=== PATIENT | male | born 1960 | race American Indian/Alaskan Native ===

== ENCOUNTER 2016-08-17 06:47 | Inpatient (IN) | payer BC ==
--- NOTE | 2016-08-17 07:49 | ED PDOC ---
Lower Extremity Pain/Injury Time Seen by Provider: 08/17/16 07:32 Chief Complaint (Nursing): Lower Extremity Problem/Injury Chief Complaint (Provider): right knee pain History Per: Patient History/Exam Limitations: no limitations Additional Complaint(s): Michael Brooke is a 56 year old male, with a previous medical history of hypertension, who presents to the ED with complaints of right knee pain associated with swelling and drainage status post knee replacement. He denies any fever or chills. Patient reports symptoms began after physical therapy session which prompted ED visit. PMD: Jeremías Bashir MD Past Medical History Reviewed: Historical Data, Nursing Documentation, Vital Signs Vital Signs: Last Vital Signs Temp 98.3 F 08/17/16 06:56 Pulse 74 08/17/16 06:56 Resp 16 08/17/16 06:56 BP 148/76 08/17/16 06:56 Pulse Ox 99 08/17/16 06:56 - Medical History PMH: HTN - Surgical History Other surgeries: right knee replacement - Family History Family History: States: Unknown Family Hx - Home Medications Home Medications: Ambulatory Orders Medication Instructions Recorded Linezolid [Zyvox] 600 mg PO Q12H 08/17/16 Montelukast [Singulair] 10 mg PO DAILY 08/17/16 Oxycodone HCl [Oxycontin] 30 mg PO Q12H 08/17/16 Valsartan [Diovan] 80 mg PO DAILY 08/17/16 oxyCODONE [oxyCODONE Immediate 30 mg PO Q8H PRN 08/17/16 Release Tab] - Allergies Allergies/Adverse Reactions: Allergies Allergy/AdvReac Type Severity Reaction Status Date / Time No Known Allergies Allergy Verified 08/17/16 06:56 Review of Systems ROS Statement: Except As Marked, All Systems Reviewed And Found Negative Constitutional: Negative for: Fever, Chills Musculoskeletal: Positive for: Leg Pain (right knee pain with swelling and drainage ) Physical Exam - Reviewed Nursing Documentation Reviewed: Yes Vital Signs Reviewed: Yes - Physical Exam Appears: Positive for: Well, Non-toxic, No Acute Distress Extremity: Positive for: Capillary Refill (< 2 seconds ), Swelling (right knee ) , Other (two wounds along surgical scar with scant yellow drainage. no active bleeding. ). Negative for: Deformity Neurologic/Psych: Positive for: Alert, Oriented - Laboratory Results Result Diagrams: 08/17/16 08:35 08/17/16 08:35 - ECG O2 Sat by Pulse Oximetry: 99 (RA) Pulse Ox Interpretation: Normal Medical Decision Making Medical Decision Making: Initial Impression: Knee pain Initial Plan: * x-ray right knee * labs * VBG shock panel * toradol 30 mg IV * blood culture * reevaluation Scribe Attestation: Documented by Nancy Saba, acting as a scribe for Gonzalez Pandey MD. Provider Scribe Attestation: All medical record entries made by the Scribe were at my direction and personally dictated by me. I have reviewed the chart and agree that the record accurately reflects my personal performance of the history, physical exam, medical decision making, and the department course for this patient. I have also personally directed, reviewed, and agree with the discharge instructions and disposition. Disposition - Clinical Impression Clinical Impression: Infection of knee - Patient ED Disposition Is Patient to be Admitted: Yes - Disposition Disposition Time: 10:20 Condition: GOOD - Pt Status Changed To: Hospital Disposition Of: Inpatient - Admit Certification Admit to Inpatient:: After my assessment, the patient will require hospitalization for at least two midnights. This is because of the severity of symptoms shown, intensity of services needed, and/or the medical risk in this patient being treated as an outpatient. - POA Present On Arrival: None
[2016-08-17] MEDS ORDERED: Vancomycin 1 g Inj ONE ×2 (08:31→15:52)
[2016-08-17 08:43] LABS: BASO # 0.1 K/uL (0.0-0.2); EOS # 0.2 K/uL (0.0-0.7); EOS % 4.1 % (0.0-4.0); HEMATOCRIT 36.8 % (35.0-51.0); LYMPH # 1.4 K/uL (1.0-4.3); LYMPH % 24.4 % (20.0-40.0); MEAN CELL VOLUME 96.2 fl (80.0-94.0); MEAN CORPUSCULAR HGB CONC 32.3 g/dL (33.0-37.0); MEAN PLATELET VOLUME 7.6 fl (7.2-11.7); MONO # 0.3 K/uL (0.0-0.8); MONO % 5.7 % (0.0-10.0); NEUT # 3.7 K/uL (1.8-7.0); NEUT % 64.8 % (50.0-75.0); RED CELL DISTRIBUTION WIDTH 14.9 % (11.5-14.5); WHITE BLOOD COUNT 5.7 K/uL (4.8-10.8)
[2016-08-17 08:45] LABS: VENOUS BLOOD GAS PCO2 50 mmHg (40-60)
[2016-08-17 08:52] LABS: ALB/GLOB RATIO 1.1 (1.0-2.1); ALKALINE PHOSPHATASE 72 U/L (38-126); ALT/SGPT 26 U/L (21-72); AST/SGOT 32 U/L (17-59); BILIRUBIN,TOTAL 0.3 mg/dl (0.2-1.3); BLOOD UREA NITROGEN 12 mg/dl (9-20); CARBON DIOXIDE 28 mmol/L (22-30); CHLORIDE 105 mmol/L (98-107); GFR AFRICAN-AMERICAN > 60; GLUCOSE,RANDOM 99 mg/dL (75-110); POTASSIUM 4.1 MMOL/L (3.6-5.0); SODIUM 141 mmol/l (132-148); TOTAL PROTEIN 7.7 G/DL (6.3-8.2)
--- NOTE | 2016-08-17 10:54 | CP.PCM.HP ---
History of Present Illness - History of Present Illness History of Present Illness: CC: knee pain HPI: 56 year old male with PMH HTN s/p bilateral knee replacements nov 2011, s/ p L knee surgery one month ago. Patient was in rehab about 2-3 weeks ago when he states he was doing an exercise and his knee "bust open" and fluid was expelled from the knee. Patient is unable to describe this fluid. Patient to go for surgery with Dr. Bashir again today. EKG NSR rate 57. Labs were reviewed. Currently no active chest pain or shortness of breath at rest or on exertion. METS > 4. Patient is low risk for moderate risk surgery and is medically stable for surgery this morning. Denies recent illness, fever, chills, chest pain, dyspnea, abdominal pain, dysuria, hematuria, hematochezia, melena, n/v/c/d. ROS: per HPI, 12 systems reviewed and negative PMSH: HTN s/p bilateral knee replacements nov 2011, s/p L knee surgery one month ago FH: HTN SH: 1 ppd 10 days. Meds: as below Allergies: NKDA Vitals: reviewed and currently stable Exam: GEN: WDWN, alert, cooperative HEENT: NCAT, PERRL, EOMI NECK: supple, no JVD, no lymphadenopathy CARDIAC: +S1S2 RRR LUNG: CTAB No WRR ABD: SOFT NT ND BSX4 NO MASSES NO HSM EXT: +pedal pulses, warm and well perfused NEURO: AAOx3 SKIN warm, dry PSYCH normal mood, normal affect Labs: reviewed and as above 08/17/16 08:35 08/17/16 08:35 PT 11.0 Seconds (9.8-13.1) 08/17/16 09:00 INR 1.0 (0.9-1.2) 08/17/16 09:00 Rads: reviewed and as above knee xr and lower extremitt ct pending Assessment and Plan: 56 year old male with PMH HTN s/p bilateral knee replacements nov 2011, s/p L knee surgery one month ago. Patient was in rehab about 2-3 weeks ago when he states he was doing an exercise and his knee "bust open" and fluid was expelled from the knee. Patient is unable to describe this fluid. Patient to go for surgery with Dr. Bashir again today. EKG NSR rate 57. Labs were reviewed. Currently no active chest pain or shortness of breath at rest or on exertion. METS > 4. Patient is low risk for moderate risk surgery and is medically stable for surgery this morning. I/D of L knee s/p arthroplasty Admit to Medsurg Continue antibiotics, Vancomycin for now Dr. Billings Consulted for infectious disease and abx regimen VTE per ortho recommendation PT eval and treat Follow up cultures Hypertension stable cont diovan Present on Admission - Present on Admission Any Indicators Present on Admission: No Past Patient History - Past Social History Smoking Status: Heavy Smoker > 10 Cigarettes Daily - CARDIAC Hx Hypertension: Yes - PSYCHIATRIC Hx Substance Use: No - SURGICAL HISTORY Hx Orthopedic Surgery: Yes (bilateral total knee replacement) Other/Comment: right eye glaucoma surgery - ANESTHESIA Hx Anesthesia: Yes Hx Anesthesia Reactions: No Meds Allergies/Adverse Reactions: Allergies Allergy/AdvReac Type Severity Reaction Status Date / Time No Known Allergies Allergy Verified 08/17/16 06:56 Results - Vital Signs Recent Vital Signs: Last Vital Signs Temp 98.5 F 08/17/16 10:21 Pulse 75 08/17/16 10:21 Resp 18 08/17/16 10:21 BP 133/76 08/17/16 10:21 Pulse Ox 100 08/17/16 10:21 - Labs Result Diagrams: 08/17/16 08:35 08/17/16 08:35 Labs: Laboratory Results - last 24 hr 08/17/16 08/17/16 08/17/16 08:35 08:35 08:40 WBC 5.7 RBC 3.83 L Hgb 11.9 L Hct 36.8 MCV 96.2 H MCH 31.0 MCHC 32.3 L RDW 14.9 H Plt Count 342 MPV 7.6 Neut % (Auto) 64.8 Lymph % (Auto) 24.4 [place] % (Auto) 5.7 Eos % (Auto) 4.1 H Baso % (Auto) 1.0 Neut # 3.7 Lymph # 1.4 [place] # 0.3 Eos # 0.2 Baso # 0.1 PT INR pO2 21 L VBG pH 7.40 VBG pCO2 50 VBG HCO3 27.1 VBG Total CO2 32.5 H VBG O2 Sat (Calc) 62.2 VBG Base Excess 5.0 H VBG Potassium 4.0 Glucose 103 Lactate 1.0 FiO2 21.0 Sodium 141 139.0 Potassium 4.1 Chloride 105 106.0 Carbon Dioxide 28 Anion Gap 13 BUN 12 Creatinine 0.9 Est GFR ( Amer) > 60 Est GFR (Non-Af Amer) > 60 Random Glucose 99 Calcium 9.0 Total Bilirubin 0.3 AST 32 ALT 26 Alkaline Phosphatase 72 Total Protein 7.7 Albumin 4.0 Globulin 3.7 Albumin/Globulin Ratio 1.1 Venous Blood Potassium 4.0 08/17/16 09:00 WBC RBC Hgb Hct MCV MCH MCHC RDW Plt Count MPV Neut % (Auto) Lymph % (Auto) [place] % (Auto) Eos % (Auto) Baso % (Auto) Neut # Lymph # [place] # Eos # Baso # PT 11.0 INR 1.0 pO2 VBG pH VBG pCO2 VBG HCO3 VBG Total CO2 VBG O2 Sat (Calc) VBG Base Excess VBG Potassium Glucose Lactate FiO2 Sodium Potassium Chloride Carbon Dioxide Anion Gap BUN Creatinine Est GFR ( Amer) Est GFR (Non-Af Amer) Random Glucose Calcium Total Bilirubin AST ALT Alkaline Phosphatase Total Protein Albumin Globulin Albumin/Globulin Ratio Venous Blood Potassium
--- NOTE | 2016-08-17 13:40 | RAD ---
PROCEDURE: Right knee dated 08/17/2016 AP and cross-table lateral views right knee performed. HISTORY: Status post knee replacement. COMPARISON: No prior FINDINGS: Total knee arthroplasty. Hardware appears intact without evidence of loosening or infection. Satisfactory alignment. No evidence of acute displaced fracture. There does appear to be moderate anterior soft tissue swelling. The possibility of cellulitis or septic arthritis cannot be excluded. Suspect joint effusion. Impression: Status post right total knee arthroplasty. Hardware appears intact without evidence loosening or infection. Satisfactory alignment. No fractures. Moderate soft tissue swelling of. Septic arthritis not excluded clinical correlation recommended.
[2016-08-17] MEDS ORDERED: Absorbable Gelatin Sponge Size 100 ONE (14:57)
[2016-08-17] MEDS ORDERED: Thrombin Topical 5,000 IU Spray Kit ONE (14:57)
[2016-08-17] MEDS ORDERED: Bacitracin Ointment 30 GM TUBE ONE (14:57)
[2016-08-17] MEDS ORDERED: Succinylcholine 200 mg/10 ml Inj IV ONE ×2 (15:04→15:05)
[2016-08-17] MEDS ORDERED: Midazolam 2 MG/2 ML VIAL ONE (15:04)
[2016-08-17] MEDS ORDERED: Propofol 10 mg/ml Inj (20 ML) ONE (15:04)
[2016-08-17] MEDS ORDERED: Lidocaine Hydrochloride 5 ML INJ ONE (15:06)
[2016-08-17] MEDS ORDERED: Sodium Chloride 0.9% 0 ML IV ONE (15:25)
[2016-08-17] MEDS ORDERED: Iohexol 300 100 ML IJ ONE (15:26)
[2016-08-17] MEDS ORDERED: Lactated Ringer's 1,000 ML IV ONE ×3 (15:38→19:30)
[2016-08-17] MEDS ORDERED: Gentamicin 80 mg/2mL Inj. ONE (15:52)
[2016-08-17 16:56] LABS: FLUID TYPE SYNOVIAL FLUID
--- NOTE | 2016-08-17 17:11 | CT ---
PROCEDURE: CT of the right knee without contrast HISTORY: s/p reimplant prosthesis COMPARISON: Comparison is made to the previous x-ray of the right knee dated 08/17/2016 TECHNIQUE: Axial and reformatted coronal and sagittal CT images of the right knee were obtained without IV contrast administration. 3D reconstructed images of the right knee were obtained for further assessment of the hardware and bony structure. CT dose, DLP: 477.32 FINDINGS: The patient is status post total right knee replacement/ arthroplasty. The hardware are seen at appropriate position. There is no CT evidence of acute fracture or dislocation at the right knee. The assessment of the osseous structures is suboptimal due streak artifact from the hardware. There is moderate size complex joint effusion more prominent at the suprapatellar region. Small high-density ossicles or high density material seen adjacent and anterior to the proximal right tibia of uncertain etiology. There are also similar high density ossicles or material at the suprapatellar joint effusion. IMPRESSION: Status post right knee arthroplasty. No evidence of acute fracture or dislocation. Moderate size complex right knee joint effusion. Few scattered round high density structures seen anterior to the proximal right tibia and anterior to the distal right femur some of which seen also in the joint effusion of uncertain etiology. Preliminary report was submitted by virtual Radiology.
[2016-08-17 18:14] LABS: FLUID TYPE SYNOVIAL FLUID
[2016-08-17 18:26] LABS: SYNOVIAL FLUID TOTAL COUNT 100 (0-0)
[2016-08-17] MEDS ORDERED: ePHEDrine 50 mg/ml Inj ONE (18:40)
[2016-08-17 18:55] LABS: SYNOVIAL FLUID TOTAL COUNT 100 (0-0)
--- NOTE | 2016-08-17 19:10 | CP.PCM.PN ---
Subjective - Date & Time of Evaluation Date of Evaluation: 08/17/16 Time of Evaluation: 19:09 - Subjective Subjective: ID NOTE PATIENT IN OR HAVE CONTINUED VANCOMYCIN PER AM ORDER ADDED MAXIPEME AWAIT CULTURES Objective - Vital Signs/Intake and Output Vital Signs (last 24 hours): Temp Pulse Resp BP Pulse Ox 97.8 F 69 18 143/83 99 08/17/16 11:35 08/17/16 11:35 08/17/16 11:35 08/17/16 11:35 08/17/16 12:40 Intake and Output: 08/17/16 08/18/16 18:59 06:59 Intake Total 1000 Balance 1000 - Medications Medications: Current Medications Vancomycin HCl 1 gm/ Sodium (Chloride) 250 mls @ 166.667 mls/hr IVPB Q12H [facility] Cefepime HCl 1 gm/ Sodium (Chloride) 100 mls @ 100 mls/hr IVPB Q12 [facility] Montelukast Sodium (Singulair) 10 mg PO DAILY [facility] Ondansetron HCl (Zofran Inj) 4 mg IVP Q6 PRN PRN Reason: Nausea/Vomiting Pneumococcal Polyvalent Vaccine (Pneumovax 23 Vaccine) 0.5 ml IM .ONCE ONE Stop: 08/18/16 09:01 Valsartan (Diovan) 80 mg PO DAILY [facility] - Labs Labs: 08/17/16 08:35 08/17/16 08:35 PT 11.0 Seconds (9.8-13.1) 08/17/16 09:00 INR 1.0 (0.9-1.2) 08/17/16 09:00
[2016-08-17] MEDS ORDERED: HYDROmorphone 0.5 mg/0.5 ml ISec IVP PRN (19:55)
[2016-08-17] MEDS ORDERED: Lidocaine 2% MPF (5 ml) Inj ONE (20:02)
--- NOTE | 2016-08-17 20:04 | PCM.SURG1 ---
Surgeon's Initial Post Op Note - Surgeon's Notes Surgeon: Mckay Daycare Manager: STACEY Andrews Type of Anesthesia: General Endo, Block Regional Anesthesia Administered By: DR Gray Pre-Operative Diagnosis: Septic TKR R Operative Findings: quad tendon rupture. R/O deep sepsis. compromise patella ligament. tricompartmental synovits. lateral patella contracture (retinaculum) Post-Operative Diagnosis: as above Operation Performed: Revision TKR ( 1component). Repair Quad tendon. Repair [ patella ligament with suture anchors. anterior and posterior synovectom;ateral patella release. posterior capsular release Specimen/Specimens Removed: synovium/bone cartilage Estimated Blood Loss: EBL {In ML}: 75 Blood Products Given: N/A Drains Used: Hemovac Post-Op Condition: Good Date of Surgery/Procedure: 08/17/16 Time of Surgery/Procedure: 16:45 (time in room 15:38)
[2016-08-17] MEDS: HYDROmorphone 0.5 mg/0.5 ml ISec IVP PRN ×6 (20:15→20:55)
[2016-08-17] MEDS: Cefepime 1 GM in Sodium Chloride 0.9% 100 ML IVPB SCH (22:46)
--- NOTE | 2016-08-18 00:04 | CARD ---
APPROVED REPORT EKG Measurement Heart [id number] <Conclusion> Sinus bradycardia Otherwise normal ECG
[2016-08-18] MEDS ORDERED: Benzocaine/Menthol (Cepacol) Lozenge PO PRN (04:57)
[2016-08-18 08:40] LABS: BASO % 0.4 % (0.0-2.0); EOS # 0.2 K/uL (0.0-0.7); EOS % 3.3 % (0.0-4.0); HEMATOCRIT 31.1 % (35.0-51.0); LYMPH # 0.9 K/uL (1.0-4.3); MEAN CELL VOLUME 96.3 fl (80.0-94.0); MEAN CORPUSCULAR HEMOGLOBIN 30.9 pg (27.0-31.0); MEAN CORPUSCULAR HGB CONC 32.1 g/dL (33.0-37.0); MEAN PLATELET VOLUME 7.5 fl (7.2-11.7); MONO # 0.3 K/uL (0.0-0.8); MONO % 3.8 % (0.0-10.0); NEUT # 5.4 K/uL (1.8-7.0); NEUT % 79.5 % (50.0-75.0); WHITE BLOOD COUNT 6.7 K/uL (4.8-10.8)
[2016-08-18 08:46] LABS: BLOOD UREA NITROGEN 10 mg/dl (9-20); CALCIUM 8.6 mg/dL (8.4-10.2); CARBON DIOXIDE 27 mmol/L (22-30); CHLORIDE 104 mmol/L (98-107); GFR AFRICAN-AMERICAN > 60; GLUCOSE,RANDOM 106 mg/dL (75-110); SODIUM 139 mmol/l (132-148)
[2016-08-18] MEDS ORDERED: Pneumococcal 23-Valent Vaccine IM ONE (09:00)
--- NOTE | 2016-08-18 09:30 | RAD ---
HISTORY: cough COMPARISON: No prior. FINDINGS: LUNGS: The lungs are well inflated and clear. PLEURA: No significant pleural effusion identified, no pneumothorax apparent. CARDIOVASCULAR: Normal. OSSEOUS STRUCTURES: No significant abnormalities. VISUALIZED UPPER ABDOMEN: Normal. OTHER FINDINGS: None. IMPRESSION: No acute findings.
[2016-08-18] MEDS: Cefepime 1 GM in Sodium Chloride 0.9% 100 ML IVPB SCH ×2 (09:50→20:37)
--- NOTE | 2016-08-18 10:06 | CP.PCM.CON ---
History of Present Illness - History of Present Illness History of Present Illness: THE PATIENT IS A 56 YEAR OLD MALE WHO UNDERWENT BILATERAL KNEE REPLACEMENTS IN 2012 AND HAD A RIGHT KNEE SURGERY ONE MONTH AGO AND AT REHAB THE SURGICAL SITE OPENED AND HE WAS ADMITTED YESTERDAY AND HAD A REVISION. HE ALSO HAS A HISTORY OF HYPERTENSION. CARDIOLOGY WAS ASKED TO SEE HIM. HE DENIES ANY KNOWN CARDIAC PROBLEMS AND DENIES CHEST PAIN OR SOB. Past Patient History - Past Social History Smoking Status: Heavy Smoker > 10 Cigarettes Daily - CARDIAC Hx Hypertension: Yes - PULMONARY Hx Respiratory Disorders: No - NEUROLOGICAL Hx Neurological Disorder: No - HEENT Hx HEENT Problems: No - RENAL Hx Chronic Kidney Disease: No - ENDOCRINE/METABOLIC Hx Endocrine Disorders: No - HEMATOLOGICAL/ONCOLOGICAL Hx Blood Disorders: No - INTEGUMENTARY Hx Dermatological Problems: No - MUSCULOSKELETAL/RHEUMATOLOGICAL Hx Musculoskeletal Disorders: No - GENITOURINARY/GYNECOLOGICAL Hx Genitourinary Disorders: No - PSYCHIATRIC Hx Substance Use: No - SURGICAL HISTORY Hx Orthopedic Surgery: Yes (bilateral total knee replacement) Other/Comment: right eye glaucoma surgery - ANESTHESIA Hx Anesthesia: Yes Hx Anesthesia Reactions: No Meds Allergies/Adverse Reactions: Allergies Allergy/AdvReac Type Severity Reaction Status Date / Time No Known Allergies Allergy Verified 08/17/16 06:56 - Medications Medications: Current Medications Benzocaine/Menthol (Cepacol Sore Throat) 1 kristin PO Q2 PRN PRN Reason: Sore Throat Last Admin: 08/18/16 05:28 Dose: 1 kristin Hydromorphone HCl (Dilaudid) 0.5 mg IVP Q5M PRN PRN Reason: Pain, moderate (4-7) Hydromorphone HCl (Dilaudid 0.2 Mg/Ml Revenue Cycle Consultant) 0 mg IV PRN PRN; Protocol PRN Reason: Pain, moderate (4-7) Last Admin: 08/17/16 21:00 Dose: 0 mg Vancomycin HCl 1 gm/ Sodium (Chloride) 250 mls @ 166.667 mls/hr IVPB Q12H [facility] Last Admin: 08/18/16 03:59 Dose: 166.667 mls/hr Cefepime HCl 1 gm/ Sodium (Chloride) 100 mls @ 100 mls/hr IVPB Q12 [facility] Last Admin: 08/18/16 09:50 Dose: 100 mls/hr Montelukast Sodium (Singulair) 10 mg PO DAILY [facility] Last Admin: 08/18/16 09:49 Dose: 10 mg Ondansetron HCl (Zofran Inj) 4 mg IVP Q6 PRN PRN Reason: Nausea/Vomiting Valsartan (Diovan) 80 mg PO DAILY [facility] Last Admin: 08/18/16 09:50 Dose: 80 mg Physical Exam - Respiratory Exam Respiratory Exam: Clear to Auscultation Bilateral - Cardiovascular Exam Cardiovascular Exam: REGULAR RHYTHM, +S1, +S2 - Extremities Exam Additional comments: RIGHT KNEE WITH SURGICAL DRESSINGS - Additional Findings Additional findings: EKG SINUS RHYTHM CXR NAD SURGICAL NOTES REVIEWED ID NOTES REVIEWED Results - Vital Signs Recent Vital Signs: Last Vital Signs Temp 98.6 F 08/18/16 08:39 Pulse 79 08/18/16 08:39 Resp 20 08/18/16 08:39 BP 127/75 08/18/16 08:39 Pulse Ox 100 08/18/16 08:39 - Labs Result Diagrams: 08/18/16 08:25 08/18/16 08:25 Labs: Laboratory Results - last 24 hr 08/17/16 08/17/16 08/17/16 09:00 16:45 16:54 WBC RBC Hgb Hct MCV MCH MCHC RDW Plt Count MPV Neut % (Auto) Lymph % (Auto) [place] % (Auto) Eos % (Auto) Baso % (Auto) Neut # Lymph # [place] # Eos # Baso # PT 11.0 INR 1.0 Sodium Potassium Chloride Carbon Dioxide Anion Gap BUN Creatinine Est GFR ( Amer) Est GFR (Non-Af Amer) Random Glucose Calcium Fluid Type Synovial fluid Synovial WBC 503.0 H Synovial RBC 886.0 H Synovial Neutrophils 94.0 H Synovial Lymphocytes 0.0 Synov Monos/Macrophage 6 H Synovial Fluid Comment Na Blood Type O POSITIVE Blood Type Confirm Antibody Screen Negative BBK History Checked No verified bt 08/17/16 08/17/16 08/18/16 17:04 17:45 08:25 WBC 6.7 RBC 3.23 L Hgb 10.0 L Hct 31.1 L MCV 96.3 H MCH 30.9 MCHC 32.1 L RDW 15.0 H Plt Count 265 MPV 7.5 Neut % (Auto) 79.5 H Lymph % (Auto) 13.0 L [place] % (Auto) 3.8 Eos % (Auto) 3.3 Baso % (Auto) 0.4 Neut # 5.4 Lymph # 0.9 L [place] # 0.3 Eos # 0.2 Baso # 0.0 PT INR Sodium Potassium Chloride Carbon Dioxide Anion Gap BUN Creatinine Est GFR ( Amer) Est GFR (Non-Af Amer) Random Glucose Calcium Fluid Type Synovial fluid Synovial WBC 198.0 H Synovial RBC 8716.0 H Synovial Neutrophils 20.0 H Synovial Lymphocytes 11.0 H Synov Monos/Macrophage 69 H Synovial Fluid Comment Na Blood Type Blood Type Confirm O POSITIVE Antibody Screen BBK History Checked 08/18/16 08:25 WBC RBC Hgb Hct MCV MCH MCHC RDW Plt Count MPV Neut % (Auto) Lymph % (Auto) [place] % (Auto) Eos % (Auto) Baso % (Auto) Neut # Lymph # [place] # Eos # Baso # PT INR Sodium 139 Potassium 4.0 Chloride 104 Carbon Dioxide 27 Anion Gap 12 BUN 10 Creatinine 0.9 Est GFR ( Amer) > 60 Est GFR (Non-Af Amer) > 60 Random Glucose 106 Calcium 8.6 Fluid Type Synovial WBC Synovial RBC Synovial Neutrophils Synovial Lymphocytes Synov Monos/Macrophage Synovial Fluid Comment Blood Type Blood Type Confirm Antibody Screen BBK History Checked Assessment & Plan - Assessment and Plan (Free Text) Assessment: S/P RIGHT KNEE SURGERY HYPERTENSION Plan: CONTINUE ANTIBIOTICS AND VALSARTAN
[2016-08-18] MEDS ORDERED: Lidocaine 1% Inj (20ml) ONE (12:33)
--- NOTE | 2016-08-18 12:59 | PCM.SURG1 ---
Surgeon's Initial Post Op Note - Surgeon's Notes Surgeon: Ranjit Samuels MD Chrome Tanner: NONE Type of Anesthesia: Local Pre-Operative Diagnosis: Knee infection Operative Findings: Patent right basilic vein Post-Operative Diagnosis: Knee infection Operation Performed: SIngle lumen picc placement right basilic vein, 37 cm. Tip in SVC. Specimen/Specimens Removed: None Estimated Blood Loss: EBL {In ML}: 2 Blood Products Given: N/A Drains Used: No Drains Post-Op Condition: Fair Date of Surgery/Procedure: 08/18/16 Time of Surgery/Procedure: 12:55
--- NOTE | 2016-08-18 13:21 | CP.PCM.PN ---
Subjective - Date & Time of Evaluation Date of Evaluation: 08/18/16 Time of Evaluation: 13:19 - Subjective Subjective: seen and examined bedside pain is controlled with [employer] per pain management no cp no dyspnea vss nad Objective - Vital Signs/Intake and Output Vital Signs (last 24 hours): Temp Pulse Resp BP Pulse Ox 97.7 F 69 18 150/90 99 08/18/16 13:13 08/18/16 13:13 08/18/16 13:13 08/18/16 13:13 08/18/16 13:13 Intake and Output: 08/18/16 08/18/16 06:59 18:59 Intake Total 450 Output Total 525 Balance -75 - Medications Medications: Current Medications Benzocaine/Menthol (Cepacol Sore Throat) 1 kristin PO Q2 PRN PRN Reason: Sore Throat Last Admin: 08/18/16 05:28 Dose: 1 kristin Enoxaparin Sodium (Lovenox) 40 mg SC DAILY [facility] PRN Reason: Protocol Hydromorphone HCl (Dilaudid) 0.5 mg IVP Q5M PRN PRN Reason: Pain, moderate (4-7) Hydromorphone HCl (Dilaudid 0.2 Mg/Ml Show Card Letterer) 0 mg IV PRN PRN; Protocol PRN Reason: Pain, moderate (4-7) Last Admin: 08/17/16 21:00 Dose: 0 mg Vancomycin HCl 1 gm/ Sodium (Chloride) 250 mls @ 166.667 mls/hr IVPB Q12H [facility] Last Admin: 08/18/16 03:59 Dose: 166.667 mls/hr Cefepime HCl 1 gm/ Sodium (Chloride) 100 mls @ 100 mls/hr IVPB Q12 [facility] Last Admin: 08/18/16 09:50 Dose: 100 mls/hr Montelukast Sodium (Singulair) 10 mg PO DAILY [facility] Last Admin: 08/18/16 09:49 Dose: 10 mg Ondansetron HCl (Zofran Inj) 4 mg IVP Q6 PRN PRN Reason: Nausea/Vomiting Valsartan (Diovan) 80 mg PO DAILY [facility] Last Admin: 08/18/16 09:50 Dose: 80 mg - Labs Labs: 08/18/16 08:25 08/18/16 08:25 PT 11.0 Seconds (9.8-13.1) 08/17/16 09:00 INR 1.0 (0.9-1.2) 08/17/16 09:00 - Constitutional Appears: Non-toxic, No Acute Distress - Head Exam Head Exam: ATRAUMATIC, NORMOCEPHALIC - Eye Exam Eye Exam: EOMI, Normal appearance, PERRL - ENT Exam ENT Exam: Mucous Membranes Moist, Normal Oropharynx - Respiratory Exam Respiratory Exam: Clear to Ausculation Bilateral, NORMAL BREATHING PATTERN - Cardiovascular Exam Cardiovascular Exam: RRR, +S1, +S2 - GI/Abdominal Exam GI & Abdominal Exam: Soft. absent: Tenderness, Mass, Organomegaly - Extremities Exam Extremities Exam: Normal Capillary Refill. absent: Pedal Edema Additional comments: +hemovac - Back Exam Back Exam: absent: CVA tenderness (L), CVA tenderness (R) - Neurological Exam Neurological Exam: Alert, Awake, Oriented x3 - Psychiatric Exam Psychiatric exam: Normal Affect, Normal Mood - Skin Skin Exam: Dry, Warm Assessment and Plan - Assessment and Plan (Free Text) Plan: 56 year old male with PMH HTN s/p bilateral knee replacements nov 2011, s/p L knee surgery one month ago. Patient was in rehab about 2-3 weeks ago when he states he was doing an exercise and his knee "bust open" and fluid was expelled from the knee. Patient is unable to describe this fluid. Patient to go for surgery with Dr. Bashir again today. EKG NSR rate 57. Labs were reviewed. Currently no active chest pain or shortness of breath at rest or on exertion. METS > 4. Patient is low risk for moderate risk surgery and is medically stable for surgery yesterday. 08/18/16 PICC today, cont vanc/cefepime. Started VTE ppx with Lovenox 40 mg daily per ortho. Discussed with Dr. Bashir. Seen by PT today as well. I/D of L knee s/p arthroplasty Admit to [facility] Continue antibiotics for 6 weeks, Vancomycin for now, Cefepime added yesterday Dr. Billings Consulted for infectious disease and abx regimen, appreciated and followed VTE per ortho recommendation PT eval and treat; follow up recommendation. Follow up cultures Hypertension stable cont diovan VTE PPX lovenox 40mg DAILY
--- NOTE | 2016-08-18 13:41 | RAD ---
Indication: Status post revision right TKR Comparison: Right knee radiographs performed 08/17/16 Two views, right knee Findings: The patient is status post right knee arthroplasty revision. Alignment appears satisfactory. Antibiotic beads are noted. Soft tissue swelling, subcutaneous emphysema, drainage catheter, and surgical garcia compatible with recent postoperative history Impression: Status post right arthroplasty as above.
[2016-08-18] MEDS ORDERED: Oxycodone/Acetaminophen 5/325 mg Tab PO PRN (13:54)
[2016-08-18] MEDS: Oxycodone/Acetaminophen 5/325 mg Tab PO PRN ×2 (14:07→19:00)
[2016-08-18] MEDS: Enoxaparin 40 mg Syringe SC SCH (17:43)
--- NOTE | 2016-08-18 18:24 | CP.PCM.PN ---
Subjective - Date & Time of Evaluation Date of Evaluation: 08/18/16 Time of Evaluation: 18:22 - Subjective Subjective: ID NOTE ALERT,COMPLAINING OF PAIN DISCUSSED C WILL NEED AT LEAST 6 WEEKS OF IV ANTIBIOTIC RX AWAIT CULTURES Objective - Vital Signs/Intake and Output Vital Signs (last 24 hours): Temp Pulse Resp BP Pulse Ox 97.3 F L 82 16 126/81 98 08/18/16 16:07 08/18/16 16:34 08/18/16 16:07 08/18/16 16:07 08/18/16 16:34 Intake and Output: 08/18/16 08/18/16 06:59 18:59 Intake Total 450 Output Total 525 Balance -75 - Medications Medications: Current Medications Benzocaine/Menthol (Cepacol Sore Throat) 1 kristin PO Q2 PRN PRN Reason: Sore Throat Last Admin: 08/18/16 05:28 Dose: 1 kristin Enoxaparin Sodium (Lovenox) 40 mg SC DAILY [facility] PRN Reason: Protocol Last Admin: 08/18/16 17:43 Dose: 40 mg Vancomycin HCl 1 gm/ Sodium (Chloride) 250 mls @ 166.667 mls/hr IVPB Q12H [facility] Last Admin: 08/18/16 17:44 Dose: 166.667 mls/hr Cefepime HCl 1 gm/ Sodium (Chloride) 100 mls @ 100 mls/hr IVPB Q12 [facility] Last Admin: 08/18/16 09:50 Dose: 100 mls/hr Montelukast Sodium (Singulair) 10 mg PO DAILY [facility] Last Admin: 08/18/16 09:49 Dose: 10 mg Ondansetron HCl (Zofran Inj) 4 mg IVP Q6 PRN PRN Reason: Nausea/Vomiting Oxycodone/Acetaminophen (Percocet 5/325 Mg Tab) 1 tab PO Q4 PRN PRN Reason: Pain, moderate (4-7) Stop: 08/21/16 13:55 Oxycodone/Acetaminophen (Percocet 5/325 Mg Tab) 2 tab PO Q4 PRN PRN Reason: Pain, severe (8-10) Stop: 08/21/16 13:56 Last Admin: 08/18/16 14:07 Dose: 2 tab Valsartan (Diovan) 80 mg PO DAILY [facility] Last Admin: 08/18/16 09:50 Dose: 80 mg - Labs Labs: 08/18/16 08:25 08/18/16 08:25 PT 11.0 Seconds (9.8-13.1) 08/17/16 09:00 INR 1.0 (0.9-1.2) 08/17/16 09:00
[2016-08-18] MEDS ORDERED: Oxycodone/Acetaminophen 5/325 mg Tab ONE (22:59)
[2016-08-18] MEDS ORDERED: Oxycodone/Acetaminophen 5/325 mg Tab PO STA (23:00)
[2016-08-19 00:38] VITALS: RESP 20
[2016-08-19] MEDS: Oxycodone/Acetaminophen 5/325 mg Tab PO PRN ×4 (04:31→18:57)
[2016-08-19 07:17] LABS: HEMATOCRIT 27.3 % (35.0-51.0); MEAN CELL VOLUME 95.7 fl (80.0-94.0); MEAN CORPUSCULAR HEMOGLOBIN 31.2 pg (27.0-31.0); MEAN CORPUSCULAR HGB CONC 32.6 g/dL (33.0-37.0); RED CELL DISTRIBUTION WIDTH 14.7 % (11.5-14.5); WHITE BLOOD COUNT 5.6 K/uL (4.8-10.8)
[2016-08-19] MEDS: Enoxaparin 40 mg Syringe SC SCH (08:43)
[2016-08-19] MEDS: Cefepime 1 GM in Sodium Chloride 0.9% 100 ML IVPB SCH ×2 (08:43→18:31)
[2016-08-19 12:02] VITALS: O2SAT 100
--- NOTE | 2016-08-19 12:04 | RAD ---
PROCEDURE: HISTORY: Right knee replaced COMPARISON: None TECHNIQUE: Total fluoroscopic time utilized during the procedure: 13.3 sec FINDINGS: Submitted images from the current procedure: 5 IMPRESSION: Less than 1 hour fluoroscopic time utilized during performance of the procedure
--- NOTE | 2016-08-19 12:15 | CP.PCM.PN ---
Subjective - Date & Time of Evaluation Date of Evaluation: 08/19/16 Time of Evaluation: 09:30 - Subjective Subjective: NO CHEST PAIN OR SOB JUST PAIN AT SURGICAL SITE Objective - Vital Signs/Intake and Output Vital Signs (last 24 hours): Temp Pulse Resp BP Pulse Ox 99 F 80 20 120/78 100 08/19/16 08:41 08/19/16 11:55 08/19/16 08:41 08/19/16 08:41 08/19/16 11:55 Intake and Output: 08/19/16 08/19/16 06:59 18:59 Intake Total 900 Output Total 1800 Balance -900 - Medications Medications: Current Medications Benzocaine/Menthol (Cepacol Sore Throat) 1 kristin PO Q2 PRN PRN Reason: Sore Throat Last Admin: 08/18/16 05:28 Dose: 1 kristin Enoxaparin Sodium (Lovenox) 40 mg SC DAILY [facility] PRN Reason: Protocol Last Admin: 08/19/16 08:43 Dose: 40 mg Vancomycin HCl 1 gm/ Sodium (Chloride) 250 mls @ 166.667 mls/hr IVPB Q12H [facility] Last Admin: 08/19/16 03:45 Dose: 166.667 mls/hr Cefepime HCl 1 gm/ Sodium (Chloride) 100 mls @ 100 mls/hr IVPB Q12 [facility] Last Admin: 08/19/16 08:43 Dose: 100 mls/hr Montelukast Sodium (Singulair) 10 mg PO DAILY [facility] Last Admin: 08/19/16 08:44 Dose: 10 mg Ondansetron HCl (Zofran Inj) 4 mg IVP Q6 PRN PRN Reason: Nausea/Vomiting Oxycodone/Acetaminophen (Percocet 5/325 Mg Tab) 1 tab PO Q4 PRN PRN Reason: Pain, moderate (4-7) Stop: 08/21/16 13:55 Last Admin: 08/18/16 23:09 Dose: 1 tab Oxycodone/Acetaminophen (Percocet 5/325 Mg Tab) 2 tab PO Q4 PRN PRN Reason: Pain, severe (8-10) Stop: 08/21/16 13:56 Last Admin: 08/19/16 08:39 Dose: 2 tab Valsartan (Diovan) 80 mg PO DAILY [facility] Last Admin: 08/19/16 08:44 Dose: 80 mg - Labs Labs: 08/19/16 05:15 08/18/16 08:25 PT 11.0 Seconds (9.8-13.1) 08/17/16 09:00 INR 1.0 (0.9-1.2) 08/17/16 09:00 - Respiratory Exam Respiratory Exam: Clear to Ausculation Bilateral - Cardiovascular Exam Cardiovascular Exam: REGULAR RHYTHM, +S1, +S2 Assessment and Plan - Assessment and Plan (Free Text) Assessment: RIGHT KNEE SURGERY HYPERTENSION Plan: CONTINUE VALSARTAN, ANTIBIOTICS AND LOVENOX
--- NOTE | 2016-08-19 14:47 | CP.PCM.PN ---
Subjective - Date & Time of Evaluation Date of Evaluation: 08/19/16 Time of Evaluation: 08:30 - Subjective Subjective: Pt doing well No feverpain controlled no Cp no SOB no abd pain no Dizziness Pt's insurance did not approve TCU - pt wants to go home Objective - Vital Signs/Intake and Output Vital Signs (last 24 hours): Temp Pulse Resp BP Pulse Ox 99 F 80 20 120/78 100 08/19/16 08:41 08/19/16 11:55 08/19/16 08:41 08/19/16 08:41 08/19/16 11:55 Intake and Output: 08/19/16 08/19/16 06:59 18:59 Intake Total 900 Output Total 1800 Balance -900 - Medications Medications: Current Medications Benzocaine/Menthol (Cepacol Sore Throat) 1 kristin PO Q2 PRN PRN Reason: Sore Throat Last Admin: 08/18/16 05:28 Dose: 1 kristin Enoxaparin Sodium (Lovenox) 40 mg SC DAILY [facility] PRN Reason: Protocol Last Admin: 08/19/16 08:43 Dose: 40 mg Vancomycin HCl 1 gm/ Sodium (Chloride) 250 mls @ 166.667 mls/hr IVPB Q12H [facility] Last Admin: 08/19/16 13:46 Dose: 166.667 mls/hr Cefepime HCl 1 gm/ Sodium (Chloride) 100 mls @ 100 mls/hr IVPB Q12 [facility] Last Admin: 08/19/16 08:43 Dose: 100 mls/hr Montelukast Sodium (Singulair) 10 mg PO DAILY [facility] Last Admin: 08/19/16 08:44 Dose: 10 mg Ondansetron HCl (Zofran Inj) 4 mg IVP Q6 PRN PRN Reason: Nausea/Vomiting Oxycodone/Acetaminophen (Percocet 5/325 Mg Tab) 1 tab PO Q4 PRN PRN Reason: Pain, moderate (4-7) Stop: 08/21/16 13:55 Last Admin: 08/18/16 23:09 Dose: 1 tab Oxycodone/Acetaminophen (Percocet 5/325 Mg Tab) 2 tab PO Q4 PRN PRN Reason: Pain, severe (8-10) Stop: 08/21/16 13:56 Last Admin: 08/19/16 13:41 Dose: 2 tab Valsartan (Diovan) 80 mg PO DAILY [facility] Last Admin: 08/19/16 08:44 Dose: 80 mg - Labs Labs: 08/19/16 05:15 08/18/16 08:25 PT 11.0 Seconds (9.8-13.1) 08/17/16 09:00 INR 1.0 (0.9-1.2) 08/17/16 09:00 - Constitutional Appears: No Acute Distress - Head Exam Head Exam: ATRAUMATIC, NORMAL INSPECTION, NORMOCEPHALIC - Eye Exam Eye Exam: EOMI, Normal appearance, PERRL Pupil Exam: NORMAL ACCOMODATION - ENT Exam ENT Exam: Mucous Membranes Moist, Normal External Ear Exam - Neck Exam Neck Exam: Full ROM. absent: Meningismus - Respiratory Exam Respiratory Exam: NORMAL BREATHING PATTERN. absent: Respiratory Distress - Cardiovascular Exam Cardiovascular Exam: REGULAR RHYTHM, +S1, +S2 - GI/Abdominal Exam GI & Abdominal Exam: Soft, Normal Bowel Sounds. absent: Tenderness - Extremities Exam Extremities Exam: Normal Capillary Refill. absent: Calf Tenderness Additional comments: right knee with dressing and immobilizer - Back Exam Back Exam: Full ROM, NORMAL INSPECTION. absent: CVA tenderness (L), CVA tenderness (R), paraspinal tenderness - Neurological Exam Neurological Exam: Alert, Awake, CN II-XII Intact, Oriented x3 Neuro motor strength exam: Left Upper Extremity: 5, Right Upper Extremity: 5, Left Lower Extremity: 5, Right Lower Extremity: 5 - Psychiatric Exam Psychiatric exam: Normal Affect, Normal Mood - Skin Skin Exam: Dry, Normal Color, Warm Assessment and Plan (1) Status post revision of total knee replacement Status: Acute (2) Infection of knee Status: Acute (3) HTN (hypertension) Status: Chronic (4) DVT prophylaxis Status: Acute - Assessment and Plan (Free Text) Assessment: 56 year old male with PMH HTN s/p bilateral knee replacements Nov 2011 and s/ p Right knee surgery a month ago . Patient was in rehab about 2-3 weeks ago when he states he was doing an exercise and his knee "bust open" and fluid was expelled from the knee. Underwent revision TKR on 08/17. PT/OT consulted - rec TCU placement however insurance does not cover . Plan to d/c home on Home IV abx and PT. (1) Status post revision of total knee replacement Status: Acute Ortho: Dr Bashir Pt doing well post op PT/OT consulted pain mgt (2) Infection of knee Status: Acute r/o Septic TKR ID consulted: Dr scott cont IV cefepime and Vanco for 6 wks - arrangement made by Case Mgt for Home IV Infusion Vanco trough, BMP weekly (3) HTN (hypertension) Status: Chronic cont Diovan (4) DVT prophylaxis Status: Acute lovemox
--- NOTE | 2016-08-19 16:06 | VASCULAR ---
PROCEDURE: Date of procedure: 08/18/2016 Procedure: 1. Placement of a right arm PICC with ultrasound and fluoroscopic guidance, CPT 37713 2. PICC tip confirmation with spot radiograph and is in the superior vena cava Medications: 1 percent lidocaine Total Fluoro time: 6.6 seconds Radiation: 0.93 mGy EBL: 2 cc HISTORY: infection requiring long-term IV antibiotics TECHNIQUE: Following informed consent and procedure time-out, the patient was placed supine on the interventional table and the right arm prepped and draped in the usual sterile fashion. Ultrasound showed a patent and compressible right basilic vein. After the skin was anesthetized with lidocaine, the basilic vein was accessed with micro micropuncture technique using ultrasound guidance. A guidewire was then advanced under fluoroscopic guidance into the superior vena cava. An image documenting ultrasound guidance for vascular access was permanently saved. The length of the single-lumen 5 [place] PICC was trimmed to 37 centimeters and advanced through a peel-away sheath. The PICC was position with tip of PICC confirm a spot radiograph the superior vena cava. The PICC was secured to the patient's skin. The PICC was flushed. A biopatch and sterile dressing was applied. IMPRESSION: Placement of a single-lumen 5 [place] PICC trimmed to 37 centimeters via right basilic vein. The tip of the PICC is confirmed with spot radiograph and is in the superior vena cava.
[2016-08-19 16:20] VITALS: BP 137/90; PULSE 74; TEMP 98.9
--- NOTE | 2016-08-19 18:13 | CP.PCM.DIS ---
Provider - Provider Date of Admission: 08/17/16 08:02 Attending physician: Eileen Simmons DO Consults: Ortho : Dr Bashir ID: Dr Billings Time Spent in preparation of Discharge (in minutes): 40 Diagnosis - Discharge Diagnosis (1) Status post revision of total knee replacement Status: Acute (2) Infection of knee Status: Acute (3) HTN (hypertension) Status: Chronic (4) DVT prophylaxis Status: Acute Hospital Course - Lab Results Lab Results: Micro Results 08/17/16 17:45 Knee - Right Gram Stain - Final 08/17/16 17:45 Knee - Right Wound Culture - Preliminary No growth. 08/17/16 17:45 Knee - Right Gram Stain - Final 08/17/16 17:45 Knee - Right Wound Culture - Preliminary No growth. 08/17/16 17:45 Knee - Right Gram Stain - Final 08/17/16 17:45 Knee - Right Wound Culture - Preliminary No growth. 08/17/16 17:45 Knee - Right Gram Stain - Final 08/17/16 17:45 Knee - Right Wound Culture - Preliminary No growth. 08/17/16 17:45 Knee - Right Gram Stain - Final 08/17/16 17:45 Knee - Right Wound Culture - Preliminary No growth. 08/17/16 17:45 Knee - Right Gram Stain - Final 08/17/16 17:45 Knee - Right Wound Culture - Preliminary No growth. 08/17/16 17:45 Knee - Right Gram Stain - Final 08/17/16 17:45 Knee - Right Wound Culture - Preliminary No growth. 08/17/16 17:45 Knee - Right Gram Stain - Final 08/17/16 17:45 Knee - Right Wound Culture - Preliminary No growth. 08/17/16 16:54 Knee - Right Gram Stain - Final 08/17/16 16:54 Knee - Right Anaerobic Culture - Final NO ANAEROBES ISOLATED. 08/17/16 16:54 Knee - Right Wound Culture - Final Coagulase Neg Staphylococcus 08/17/16 08:35 Blood Blood Culture - Preliminary NO GROWTH AFTER 48 HOURS 08/17/16 16:54 Other: Please Indicate Mycobacterial Culture - Preliminary Most Recent Lab Values WBC 5.6 K/uL (4.8-10.8) 08/19/16 05:15 RBC 2.85 Mil/uL (4.40-5.90) L 08/19/16 05:15 Hgb 8.9 g/dL (12.0-18.0) L 08/19/16 05:15 Hct 27.3 % (35.0-51.0) L 08/19/16 05:15 MCV 95.7 fl (80.0-94.0) H 08/19/16 05:15 MCH 31.2 pg (27.0-31.0) H 08/19/16 05:15 MCHC 32.6 g/dL (33.0-37.0) L 08/19/16 05:15 RDW 14.7 % (11.5-14.5) H 08/19/16 05:15 Plt Count 260 K/uL (130-400) 08/19/16 05:15 MPV 7.5 fl (7.2-11.7) 08/18/16 08:25 Neut % (Auto) 79.5 % (50.0-75.0) H 08/18/16 08:25 Lymph % (Auto) 13.0 % (20.0-40.0) L 08/18/16 08:25 Calhoun % (Auto) 3.8 % (0.0-10.0) 08/18/16 08:25 Eos % (Auto) 3.3 % (0.0-4.0) 08/18/16 08:25 Baso % (Auto) 0.4 % (0.0-2.0) 08/18/16 08:25 Neut # 5.4 K/uL (1.8-7.0) 08/18/16 08:25 Lymph # 0.9 K/uL (1.0-4.3) L 08/18/16 08:25 Calhoun # 0.3 K/uL (0.0-0.8) 08/18/16 08:25 Eos # 0.2 K/uL (0.0-0.7) 08/18/16 08:25 Baso # 0.0 K/uL (0.0-0.2) 08/18/16 08:25 PT 11.0 Seconds (9.8-13.1) 08/17/16 09:00 INR 1.0 (0.9-1.2) 08/17/16 09:00 pO2 21 mm/Hg (30-55) L 08/17/16 08:40 VBG pH 7.40 (7.32-7.43) 08/17/16 08:40 VBG pCO2 50 mmHg (40-60) 08/17/16 08:40 VBG HCO3 27.1 mmol/L 08/17/16 08:40 VBG Total CO2 32.5 mmol/L (22-28) H 08/17/16 08:40 VBG O2 Sat (Calc) 62.2 % (40-65) 08/17/16 08:40 VBG Base Excess 5.0 mmol/L (0.0-2.0) H 08/17/16 08:40 VBG Potassium 4.0 mmol/L (3.6-5.2) 08/17/16 08:40 Sodium 139.0 mmol/L (132-148) 08/17/16 08:40 Chloride 106.0 mmol/L (98-107) 08/17/16 08:40 Glucose 103 mg/dL (75-110) 08/17/16 08:40 Lactate 1.0 mmol/L (0.7-2.1) 08/17/16 08:40 FiO2 21.0 % 08/17/16 08:40 Sodium 139 mmol/l (132-148) 08/18/16 08:25 Potassium 4.0 MMOL/L (3.6-5.0) 08/18/16 08:25 Chloride 104 mmol/L (98-107) 08/18/16 08:25 Carbon Dioxide 27 mmol/L (22-30) 08/18/16 08:25 Anion Gap 12 (10-20) 08/18/16 08:25 BUN 10 mg/dl (9-20) 08/18/16 08:25 Creatinine 0.9 mg/dL (0.8-1.5) 08/18/16 08:25 Est GFR ( Amer) > 60 08/18/16 08:25 Est GFR (Non-Af Amer) > 60 08/18/16 08:25 Random Glucose 106 mg/dL (75-110) 08/18/16 08:25 Calcium 8.6 mg/dL (8.4-10.2) 08/18/16 08:25 Total Bilirubin 0.3 mg/dl (0.2-1.3) 08/17/16 08:35 AST 32 U/L (17-59) 08/17/16 08:35 ALT 26 U/L (21-72) 08/17/16 08:35 Alkaline Phosphatase 72 U/L (38-126) 08/17/16 08:35 Total Protein 7.7 G/DL (6.3-8.2) 08/17/16 08:35 Albumin 4.0 g/dL (3.5-5.0) 08/17/16 08:35 Globulin 3.7 gm/dL (2.2-3.9) 08/17/16 08:35 Albumin/Globulin Ratio 1.1 (1.0-2.1) 08/17/16 08:35 Procalcitonin < 0.05 NG/ML (0.19-0.49) L 08/18/16 08:25 Venous Blood Potassium 4.0 mmol/L (3.6-5.2) 08/17/16 08:40 Fluid Type Synovial fluid 08/17/16 17:45 Synovial WBC 198.0 /mm3 (0.0-150.0) H 08/17/16 17:45 Synovial RBC 8716.0 /mm3 (0.0-0.0) H 08/17/16 17:45 Synovial Neutrophils 20.0 % (0-0) H 08/17/16 17:45 Synovial Lymphocytes 11.0 % (0-0) H 08/17/16 17:45 Synov Monos/Macrophage 69 % (0-0) H 08/17/16 17:45 Synovial Fluid Comment Na 08/17/16 17:45 Vancomycin Trough 5.7 ug/mL (5.0-10.0) 08/19/16 03:31 Blood Type O POSITIVE 08/17/16 16:45 Blood Type Confirm O POSITIVE 08/17/16 17:04 Antibody Screen Negative 08/17/16 16:45 BBK History Checked No verified bt 08/17/16 16:45 - Hospital Course Hospital Course: 56 year old male with PMH HTN s/p bilateral knee replacements Nov 2011 and s/ p Right knee surgery a month ago . Patient was in rehab about 2-3 weeks ago when he states he was doing an exercise and his knee "bust open" and fluid was expelled from the knee. Underwent revision TKR on 08/17. PT/OT consulted - rec TCU placement however insurance does not cover . Patient doing well post op. Hemovac d/c. Plan to d/ c home on Home IV abx and PT. (1) Status post revision of total knee replacement Status: Acute Ortho: Dr Bashir Pt doing well post op PT/OT consulted (2) Infection of knee Status: Acute r/o Septic TKR ID consulted: Dr billings cont IV cefepime and Vanco for 6 wks Vanco trough, BMP weekly (3) HTN (hypertension) Status: Chronic cont Diovan (4) DVT prophylaxis Status: Acute lovenox Discharge Exam - Head Exam Head Exam: ATRAUMATIC, NORMAL INSPECTION, NORMOCEPHALIC - Eye Exam Eye Exam: EOMI, Normal appearance, PERRL Pupil Exam: NORMAL ACCOMODATION - ENT Exam ENT Exam: Mucous Membranes Moist, Normal External Ear Exam - Neck Exam Neck exam: Full Rom - Respiratory Exam Respiratory Exam: NORMAL BREATHING PATTERN. absent: Respiratory Distress - Cardiovascular Exam Cardiovascular Exam: REGULAR RHYTHM, +S1, +S2 - GI/Abdominal Exam GI & Abdominal Exam: Normal Bowel Sounds, Soft. absent: Tenderness - Extremities Exam Extremities exam: normal capillary refill, pedal pulses present Additional comments: no calf tenderness right knee with dressing and immobilizer - Back Exam Back exam: FULL ROM, NORMAL INSPECTION. absent: CVA tenderness (L), CVA tenderness (R) - Neurological Exam Neurological exam: CN II-XII Intact, Oriented x3, Reflexes Normal - Psychiatric Exam Psychiatric exam: Normal Affect, Normal Mood - Skin Skin Exam: Dry, Normal Color, Warm Discharge Plan - Discharge Medications Prescriptions: Cefepime 1gm in NS 100ml [Maxipime 1gm] 1 gm IVPB Q12 42 Days Enoxaparin [Lovenox] 40 mg SC DAILY #30 syr Ferrous Sulfate 325 mg PO BID #60 tab oxyCODONE/Acetaminophen [Percocet 5/325 mg Tab] 1 ea PO Q4 PRN #30 tab PRN Reason: Pain, Moderate (4-7) oxyCODONE/Acetaminophen [Percocet 5/325 mg Tab] 1 tab PO Q4 PRN #1 tab PRN Reason: Pain, Moderate (4-7) Vancomycin/0.9 % Sod Chloride [Vanco 1 Gram/250 ml-0.9% NaCl] 1 gm IV Q12 42 Days - Follow Up Plan Condition: GOOD Disposition: HOME/ ROUTINE Additional Instructions: ff up with Dr Bashir in 1 wk Home IV antibiotic infusion - Cefepime and Vanco Vanco trough and BMP weekly SQ Lovenox Home PT/OT Referrals: Jeremías Bashir III, MD [Staff Provider] - Andres Billings MD [Medical Doctor] -
--- NOTE | 2016-08-21 21:24 | OP ---
PROCEDURE DATE: 08/17/2016 PREOPERATIVE DIAGNOSIS: Rule out septic right total knee replacement. POSTOPERATIVE DIAGNOSES: 1. Quadriceps tendon rupture. 2. Rule out deep sepsis. 3. Compromised patellar ligament. 4. Tricompartmental synovitis. 5. Lateral patella retinacular contracture. OPERATIVE FINDINGS: As above. OPERATIVE PROCEDURES: 1. Revision total knee replacement 1 component. 2. Repair of quadriceps tendon. 3. Repair of patellar ligament. 4. Anterior and posterior synovectomy, irrigation and debridement. 5. Lateral patellar release. 6. Posterior capsular release. SURGEON: Jeremías Bashir MD WELDING MACHINE OPERATOR GAS: Karissa Lira, Certified Registered Nursing Rn Procedures. ANESTHESIA: General endotracheal anesthesia, Dr. Gray, regional block. SPECIMEN: Synovium, bone cartilage and total knee polyethylene component. BLOOD LOSS: 75 mL. BLOOD PRODUCTS: None given. DRAINS: One Hemovac drain. POSTOPERATIVE CONDITION: Good. OPERATIVE INDICATION: The patient is a 56-year-old gentleman who presented to the Emergency Room at [facility] with knee drainage. The patient is status post successful revision total knee 07/01/2016, which was revised through sepsis. The patient is stabilized, evaluated. CT scan examination was obtained. The patient was taken to surgery. The pros, cons, risks and benefits of irrigation and debridement, possible ligament repair discussed, possible revision/polyethylene ex change discussed. The possibility of mechanical failure, infection, thromboembolic disease, secondar y or tertiary surgery is discussed. The patient can no longer stand the discomfort and wished the monroe rgery to be accomplished. OPERATIVE PROCEDURE: After having obtained informed consent, after having identified side, site and procedure and a critical pause/timeout, after the satisfactory induction of the anesthetic, the patie nt identified, in the supine position with all bony prominences well padded, the right lower extremit y is prepped and free draped in the usual fashion for lower extremity surgery. The tourniquet had be en applied, but is not yet inflated. After exsanguinating the limb using a 6-inch Esmarch bandage, t he tourniquet which had been applied is inflated to 350 mmHg. An ellipse of skin is excised, 2 finge rbreadths proximal to the initial incision 2 fingerbreadths distal. The skin incision is carried alley n through the skin and subcutaneous tissue and some muscle is excised as well. An ellipse of skin is removed. On entry to the joint, there is found to be a gush of fluid and sent for aerobic, anaerobi c, AFB and fungal cultures and Gram stain. The Gram stains were taken x 2 for a number of white cell s per high power field and bacteria. There was some difficulty in obtaining the Gram stains. There is some question about the validity of the stains. After having opened up the incision, the skin inc ision is carried down through the skin and subcutaneous tissue. There was found to be a complete rup ture of the quadriceps tendon. This having been accomplished, the quad tendon is identified and it w as found to be completely ruptured. There was found to be compromise of the patellar ligament. At t his point in time, the knee is flexed, the tibia is dislocated anteriorly. There is found to be evid ence of a lateral patellar retinacular contracture and at this point in time, grasping the quadriceps tendon with Jasiel's, the deep plane superficial to the lateral patellar retinaculum was developed. A complete lateral patellar retinacular release is accomplished. There was found to be an extensive amount of synovium and synovitis and an extensive anterior and posterior synovectomy is accomplished . Fluid is sent for aerobic, anaerobic, AFB and fungal cultures for a number of white cells per high power field. This having been accomplished, the wound is thoroughly irrigated. The posterior capsu le was released, the lateral patellar retinaculum was released as well. At this point in time, the q uadriceps tendon is identified. The quad repair is accomplished using a combination of the #5 FiberW rui and a #2 FiberWire. A modified Ambar-type suture is accomplished and this is started from the quad tendon proximally, through to the patella cuff, the cuff of patella tissue. The medial arthroto my is found to be open and ruptured as well and this was closed using modified sutures to gathe r the retinaculum. At this point in time, the quadriceps is repaired in 2 layers with a modified Kess ler suture and with a modified [place] suture. This having been accomplished, the patella ligament i s identified and the patellar ligament is repaired using interrupted stay tack internal fixation sutu res and the Arthrex internal fixation sutures. In this way, the patellar ligament is repaired. The quadriceps tendon rupture is repaired. It should be noted that prior to repair, the polyethylene from the tibial component is removed to remove any possible glycocalix and bacterial sequestration in wero e. The polyethylene is removed from the tibial component. The total knee components were well fixed. Because the length of time since the surgery is approximately 3-5 weeks, it is subacute in nature. All attempt was made to retain the components of the prosthesis, especially in the face of the ambig uity of the Gram stain result. This having been accomplished, the polyethylene patella insert is rep laced and the knee is thus revised. The wound is thoroughly irrigated. Closure is in layers with #1 Vicryl, 0 Vicryl, 2-0 Vicryl and garcia for skin over an 1/8 inch suction Hemovac drain. Bautista miller compression dressing is applied. It should be noted that a careful and extensive anterior and posterior synovectomy had been accomplis hed. The posterior capsule was released as well as the lateral patellar retinaculum was released. H emostasis was controlled, the tourniquet was deflated. Hemostasis was controlled with the Aquamantys . Thorough irrigation and debridement with both Irrisept and with several liters of antibiotic infus ed saline. Bautista Quezada compression dressing and knee immobilizer was applied. Jeremías Bashir MD cc: [id number] TT: 08/21/2016 21:23:27 renee
== END 2016-08-19 20:24 | disposition home or self-care (01) | DRG 464 ==
LOC: H.ER 06:47 → H.ERHOLD 08:02 → H.MEDSURG1 11:19
PROVIDERS: ADMIT Student in an Organized Health Care Education/Training Program; ATTEND Student in an Organized Health Care Education/Training Program
PROC: 0SPV0JZ Removal of Synthetic Substitute from Right Knee Joint, Tibial Surface, Open Approach (ICD-10-PCS; 2016-08-17)
PROC: 0SBC0ZZ Excision of Right Knee Joint, Open Approach (ICD-10-PCS; 2016-08-17)
PROC: 0LQQ0ZZ Repair Right Knee Tendon, Open Approach (ICD-10-PCS; 2016-08-17)
PROC: 0SNC0ZZ Release Right Knee Joint, Open Approach (ICD-10-PCS; 2016-08-17)
PROC: 3E0234Z Introduction of Serum, Toxoid and Vaccine into Muscle, Percutaneous Approach (ICD-10-PCS; principal; 2016-08-18)
PROC: 02HV33Z Insertion of Infusion Device into Superior Vena Cava, Percutaneous Approach (ICD-10-PCS; 2016-08-18)
DX: M66.861 Spontaneous rupture of other tendons, right lower leg (principal); M00.9 Pyogenic arthritis, unspecified; I10 Essential (primary) hypertension; F17.210 Nicotine dependence, cigarettes, uncomplicated; Z23 Encounter for immunization; M65.9 Synovitis and tenosynovitis, unspecified; M24.561 Contracture, right knee

== ENCOUNTER 2016-09-17 07:19 | Observation (INO) | payer BC ==
--- NOTE | 2016-09-17 07:43 | ED PDOC ---
Lower Extremity Pain/Injury Time Seen by Provider: 09/17/16 07:28 Chief Complaint (Nursing): Lower Extremity Problem/Injury Chief Complaint (Provider): right knee pain History Per: Patient History/Exam Limitations: no limitations Additional Complaint(s): Patient is a 56 y/o M with hx of b/l knee replacements in November 2011, s/p R knee surgery in June with revision of R total knee replacement on 08/17, discharged home on 42 days of IV antibiotics, presenting with R knee pain. Patient reports 2 day history of worsening knee pain. Denies erythema or discharge. Denies calf swelling. Past Medical History Reviewed: Historical Data, Nursing Documentation, Vital Signs Vital Signs: Last Vital Signs Temp 98.4 F 09/17/16 07:33 Pulse 74 09/17/16 07:33 Resp 20 09/17/16 07:33 BP 128/82 09/17/16 07:33 Pulse Ox 98 09/17/16 07:33 - Medical History PMH: HTN Denies: Chronic Kidney Disease - Family History Family History: States: Unknown Family Hx - Home Medications Home Medications: Ambulatory Orders Medication Instructions Recorded Montelukast [Singulair] 10 mg PO DAILY 08/17/16 Valsartan [Diovan] 80 mg PO DAILY 08/17/16 Cefepime 1gm in NS 100ml [Maxipime 1 gm IVPB Q12 42 Days 08/19/16 1gm] Ferrous Sulfate 325 mg PO BID #60 tab 08/19/16 Vancomycin/0.9 % Sod Chloride 1 gm IV Q12 42 Days 08/19/16 [Vanco 1 Gram/250 ml-0.9% NaCl] oxyCODONE/Acetaminophen [Percocet 1 tab PO Q4 PRN #1 tab 08/19/16 5/325 mg Tab] Potassium Chloride [K-Tab ER] 10 meq PO DAILY #15 tablet.er 09/09/16 - Allergies Allergies/Adverse Reactions: Allergies Allergy/AdvReac Type Severity Reaction Status Date / Time No Known Allergies Allergy Verified 09/17/16 07:33 Review of Systems ROS Statement: Except As Marked, All Systems Reviewed And Found Negative Constitutional: Negative for: Fever, Chills Cardiovascular: Negative for: Chest Pain Respiratory: Negative for: Cough, Shortness of Breath, SOB with Exertion Gastrointestinal: Negative for: Nausea, Vomiting, Abdominal Pain Genitourinary Male: Negative for: Dysuria Musculoskeletal: Positive for: Leg Pain (right knee ) Neurological: Negative for: Weakness, Numbness Physical Exam - Reviewed Nursing Documentation Reviewed: Yes Vital Signs Reviewed: Yes - Physical Exam Appears: Positive for: Well, Non-toxic, No Acute Distress Eye Exam: Positive for: EOMI, PERRL Neck: Positive for: Supple Cardiovascular/Chest: Positive for: Regular Rate, Rhythm Respiratory: Positive for: CNT, Normal Breath Sounds Pulses-Dorsalis Pedis (R): 2+ Gastrointestinal/Abdominal: Positive for: Normal Exam, Bowel Sounds, Soft. Negative for: Tenderness, Mass, Distended Back: Positive for: Normal Inspection Extremity: Positive for: Capillary Refill (< 2 seconds ), Swelling (mild to the right knee), Other (vertical surgical incision to the right knee with no erythema, small area where incision is opening at inferior aspect. Knee held in almost full extension with pain with ROM). Negative for: Normal ROM, Calf Tenderness, Deformity Neurologic/Psych: Positive for: Alert, Oriented - Laboratory Results Result Diagrams: 09/17/16 08:34 09/17/16 08:34 - ECG O2 Sat by Pulse Oximetry: 98 (RA) Pulse Ox Interpretation: Normal Medical Decision Making Medical Decision Making: Initial Plan: * Type and screen * EKG * labs * PTT * PT * Morphine 2mg IV * NPO diet * reevaluation 07:[address] Bashir who will take the patient to the operating room later today and is requesting admission to the hospitalist. Spoke to hospitalist Dr. Pa who evaluated patient in ED Scribe Attestation: Documented by Nancy Saba, acting as a scribe for Claudia Troy MD. Provider Scribe Attestation: All medical record entries made by the Scribe were at my direction and personally dictated by me. I have reviewed the chart and agree that the record accurately reflects my personal performance of the history, physical exam, medical decision making, and the department course for this patient. I have also personally directed, reviewed, and agree with the discharge instructions and disposition. Disposition - Clinical Impression Clinical Impression: Knee pain - Disposition Disposition Time: 08:12 Condition: FAIR - Pt Status Changed To: Hospital Disposition Of: Inpatient - Admit Certification Admit to Inpatient:: After my assessment, the patient will require hospitalization for at least two midnights. This is because of the severity of symptoms shown, intensity of services needed, and/or the medical risk in this patient being treated as an outpatient.
--- NOTE | 2016-09-17 08:30 | CP.PCM.HP ---
History of Present Illness - History of Present Illness History of Present Illness: Chief Complaint : Right knee pain HPI: 56 y/o gent with Hx of HTN, OA s/p Bilat TKR in 2011 , Had surgery of the right knee in June 2016 and while in Rehab, his wound dehisced and started draining. He then underwent Revision TKR and Quad Repair and started on IV antibiotics for infection. The patient has been on Home IV Antibiotic Infusion of Cefepime and Vancomycin for the past 1 month. Wound c/s: Staph coagulase negative. Today patient came in because of right knee Pain 09/07, takes prn Oxycodone but does not want to take Opiates as much as possible. Pain non radiating. Knee is slight swollen but denies drainage. Denies fever nor any other accompanying symptoms. Present on Admission - Present on Admission Any Indicators Present on Admission: Yes History Surgical Site Infection Following: Orthopedic Procedures Review of Systems - Review of Systems All systems: reviewed and no additional remarkable complaints except - Constitutional Constitutional: absent: Chills, Fever, Weight Loss, Weakness - EENT Eyes: absent: Change in Vision Ears: absent: Decreased Hearing, Ear Discharge, Dizziness Nose/Mouth/Throat: absent: Nasal Congestion, Nasal Discharge - Cardiovascular Cardiovascular: absent: Chest Pain, Chest Pain at Rest, Dyspnea on Exertion, Edema - Respiratory Respiratory: absent: Cough, Dyspnea, Hemoptysis, Dyspnea on Exertion - Gastrointestinal Gastrointestinal: absent: Abdominal Pain, Nausea, Vomiting - Genitourinary Genitourinary: absent: Difficulty Urinating, Dysuria, Urinary Incontinence - Musculoskeletal Musculoskeletal: Arthralgias, Limited Range of Motion. absent: Muscle Weakness , Numbness - Integumentary Integumentary: absent: Bleeding Lesions, Rash - Neurological Neurological: absent: Confusion, Focal Weakness, Headaches - Psychiatric Psychiatric: absent: Anxiety, Confusion, Depression, Suicidal Ideation - Endocrine Endocrine: absent: Polydipsia, Polyphagia, Polyuria - Hematologic/Lymphatic Hematologic: absent: Easy Bleeding, Easy Bruising, Lymphadenopathy Past Patient History - Infectious Disease Hx of Infectious Diseases: None - Tetanus Immunizations Tetanus Immunization: Unknown - Past Medical History & Family History Past Medical History?: Yes Past Family History: Reviewed and not pertinent - Past Social History Smoking Status: Heavy Smoker > 10 Cigarettes Daily Chewing Tobacco Use: No Cigar Use: No 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 Alcohol: None Drugs: Denies Home Situation {Lives}: With Family - CARDIAC Hx Hypertension: Yes - PULMONARY Hx Respiratory Disorders: No - NEUROLOGICAL Hx Neurological Disorder: No - HEENT Hx HEENT Problems: No - RENAL Hx Chronic Kidney Disease: No - ENDOCRINE/METABOLIC Hx Endocrine Disorders: No - HEMATOLOGICAL/ONCOLOGICAL Hx Blood Disorders: No - INTEGUMENTARY Hx Dermatological Problems: No - MUSCULOSKELETAL/RHEUMATOLOGICAL Hx Musculoskeletal Disorders: Yes Hx Degenerative Joint Disease: Yes - GASTROINTESTINAL Hx Gastrointestinal Disorders: No - GENITOURINARY/GYNECOLOGICAL Hx Genitourinary Disorders: No - PSYCHIATRIC Hx Psychophysiologic Disorder: No Hx Substance Use: No - SURGICAL HISTORY Hx Surgeries: Yes Hx Orthopedic Surgery: Yes (bilateral total knee replacement) - ANESTHESIA Hx Anesthesia: Yes Hx Anesthesia Reactions: No Hx Malignant Hyperthermia: No Has any member of the family had a problem w/ anesthesia?: No Meds Allergies/Adverse Reactions: Allergies Allergy/AdvReac Type Severity Reaction Status Date / Time No Known Allergies Allergy Verified 09/17/16 07:33 Physical Exam - Constitutional Appears: No Acute Distress - Head Exam Head Exam: NORMAL INSPECTION, NORMOCEPHALIC - Eye Exam Eye Exam: EOMI, Normal appearance, PERRL Pupil Exam: NORMAL ACCOMODATION - ENT Exam ENT Exam: Mucous Membranes Moist, Normal External Ear Exam - Neck Exam Neck exam: Positive for: Full Rom. Negative for: Meningismus - Respiratory Exam Respiratory Exam: NORMAL BREATHING PATTERN. absent: Rhonchi, Wheezes, Respiratory Distress - Cardiovascular Exam Cardiovascular Exam: REGULAR RHYTHM, +S1, +S2 - GI/Abdominal Exam GI & Abdominal Exam: Normal Bowel Sounds, Soft. absent: Tenderness - Extremities Exam Extremities exam: Positive for: normal capillary refill, pedal pulses present. Negative for: calf tenderness Additional comments: Right knee with surgical wound - noted some open areas, no drainage noted, pain on ROM - Back Exam Back exam: FULL ROM. absent: CVA tenderness (L), CVA tenderness (R) Additional comments: old laceration scars back - Neurological Exam Neurological exam: Alert, CN II-XII Intact, Oriented x3, Reflexes Normal - Psychiatric Exam Psychiatric exam: Normal Affect, Normal Mood - Skin Skin Exam: Dry, Normal Color, Warm Results - Vital Signs Recent Vital Signs: Last Vital Signs Temp 98.4 F 09/17/16 07:33 Pulse 74 09/17/16 07:33 Resp 20 09/17/16 07:33 BP 128/82 09/17/16 07:33 Pulse Ox 98 09/17/16 07:58 - Labs Result Diagrams: 09/17/16 08:34 09/17/16 08:34 - EKG Data EKG Interpreted by: Myself EKG shows normal: Sinus rhythm Rate: Bradycardia - EKG Data When Compared to Previous EKG: No Significant Change Assessment & Plan (1) Right knee pain Status: Acute (2) 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 He then underwent Revision TKR and Quad Repair and started on IV antibiotics for infection. The patient has been on Home IV Antibiotic Infusion of Cefepime and Vancomycin for the past 1 month. Wound c/s: Staph coagulase negative. Today patient came in because of right knee Pain . 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 Bed Request Type: Med/Surg Admitting Physician: Lenora Pa
[2016-09-17 08:41] LABS: BASO % 0.7 % (0.0-2.0); EOS # 0.5 K/uL (0.0-0.7); EOS % 9.6 % (0.0-4.0); HEMOGLOBIN 12.2 g/dL (12.0-18.0); LYMPH # 1.2 K/uL (1.0-4.3); LYMPH % 23.9 % (20.0-40.0); MEAN CELL VOLUME 94.9 fl (80.0-94.0); MEAN CORPUSCULAR HGB CONC 32.7 g/dL (33.0-37.0); MONO # 0.3 K/uL (0.0-0.8); MONO % 6.9 % (0.0-10.0); NEUT % 58.9 % (50.0-75.0); NRBC % 0.1 % (0.0-0.0); RBC 3.93 Mil/uL (4.40-5.90); RED CELL DISTRIBUTION WIDTH 15.3 % (11.5-14.5)
[2016-09-17 08:51] LABS: ALB/GLOB RATIO 1.4 (1.0-2.1); ALBUMIN 4.1 g/dL (3.5-5.0); ALT/SGPT 32 U/L (21-72); AST/SGOT 20 U/L (17-59); BLOOD UREA NITROGEN 10 mg/dl (9-20); CALCIUM 9.3 mg/dL (8.4-10.2); GFR AFRICAN-AMERICAN > 60; GFR NON-AFRICAN AMERICAN > 60
[2016-09-17 09:04] LABS: INR 1.1 (0.9-1.2); PARTIAL THROMBOPLASTIN TIME 39.6 Seconds (25.6-37.1); PROTHROMBIN TIME 11.9 Seconds (9.8-13.1)
[2016-09-17] MEDS ORDERED: Oxycodone/Acetaminophen 5/325 mg Tab PO PRN (09:05)
[2016-09-17 09:09] LABS: SQUAMOUS EPITHIAL < 1 /hpf (0-5); URINE BACTERIA RARE (<OCC); URINE BILIRUBIN NEGATIVE (NEGATIVE); URINE BLOOD NEGATIVE (NEGATIVE); URINE CLARITY CLEAR (Clear); URINE COLOR YELLOW (YELLOW); URINE GLUCOSE (UA) NEG (Normal); URINE LEUKOCYTE ESTERASE NEG Leu/uL (Negative); URINE NITRATE NEGATIVE (NEGATIVE); URINE PROTEIN NEGATIVE (NEGATIVE); URINE UROBILINOGEN 0.2-1.0 mg/dL (0.2-1.0)
--- NOTE | 2016-09-17 09:32 | RAD ---
HISTORY: pre-op COMPARISON: 08/17/2016 FINDINGS: LUNGS: No active pulmonary disease. PLEURA: No significant pleural effusion identified, no pneumothorax apparent. CARDIOVASCULAR: Normal. OSSEOUS STRUCTURES: No significant abnormalities. VISUALIZED UPPER ABDOMEN: Normal. OTHER FINDINGS: None. IMPRESSION: No active disease.
--- NOTE | 2016-09-17 09:51 | RAD ---
PROCEDURE: Right Knee Radiographs. HISTORY: R knee pain COMPARISON: 08/17/2016 FINDINGS: BONES: Status post total knee replacement. No acute osseous fracture. No evidence of prosthesis loosening. JOINTS: As above JOINT EFFUSION: None. OTHER FINDINGS: None. IMPRESSION: Right total knee replacement. No acute abnormality.
[2016-09-17] MEDS ORDERED: Propofol 10 mg/ml Inj (20 ML) ONE (11:17)
[2016-09-17] MEDS ORDERED: Succinylcholine 200 mg/10 ml Inj IV ONE (11:17)
[2016-09-17] MEDS ORDERED: Midazolam 2 MG/2 ML VIAL ONE (11:17)
[2016-09-17] MEDS ORDERED: Lidocaine Hydrochloride 5 ML INJ ONE (11:20)
[2016-09-17] MEDS ORDERED: Sevoflurane - Inhalation Anesthetic Liq (250 ml) ONE (11:20)
[2016-09-17] MEDS ORDERED: Lidocaine 2% Jelly (5 ml) TOP ONE (11:21)
[2016-09-17] MEDS ORDERED: Lactated Ringer's 1,000 ML IV ONE ×2 (12:46→13:30)
--- NOTE | 2016-09-17 12:47 | CARD ---
APPROVED REPORT EKG Measurement Heart [id number] IN [id number] <Conclusion> Sinus bradycardia Minimal voltage criteria for LVH, may be normal variant Borderline ECG
[2016-09-17 14:01] LABS: FLUID TYPE SYNOVIAL FLUID
[2016-09-17] MEDS: HYDROmorphone 0.5 mg/0.5 ml ISec IVP PRN ×3 (14:40→15:40)
[2016-09-17] MEDS ORDERED: HYDROmorphone 0.5 mg/0.5 ml ISec ONE (14:41)
[2016-09-17 15:05] LABS: SF GROSS APPEARANCE CLEAR (CLEAR); SYNOVIAL FLUID COMMENT COLORLESS; SYNOVIAL FLUID MONO/MACROPHAGE 0 % (0-0)
--- NOTE | 2016-09-17 15:08 | PCM.SURG1 ---
Surgeon's Initial Post Op Note - Surgeon's Notes Surgeon: Mckay [employer] Tower Controller: STACEY Benitez Type of Anesthesia: General Endo Anesthesia Administered By: Dr Gray Pre-Operative Diagnosis: wound dehiscience s/p R TKR Operative Findings: wound dehiscience R knee- no evidence for deep sepsis. retained foreign body ( sutures) Post-Operative Diagnosis: same. no evidence for deep sepsis Operation Performed: Application wound vac R knee. irrigation/debridement R knee. ]removal foreing body (deep) Specimen/Specimens Removed: sutures ( foreign bodies). scar tissue Estimated Blood Loss: EBL {In ML}: 5 Blood Products Given: N/A Drains Used: No Drains Post-Op Condition: Good Date of Surgery/Procedure: 09/17/16 Time of Surgery/Procedure: 13:45 (time in room/ anaesthesia induction time: 12: 46)
--- NOTE | 2016-09-17 16:42 | RAD ---
PROCEDURE: Right Knee Radiographs. HISTORY: wound dehiscience s/p TKR COMPARISON: 09/17/2016 8:43 a.m. FINDINGS: BONES: Status post right TKR. No evidence of acute fracture. No evidence of prosthesis loosening. JOINTS: As above JOINT EFFUSION: None. OTHER FINDINGS: New surgical drainage catheter placed. IMPRESSION: Right TKR with new surgical drainage catheter.
--- NOTE | 2016-09-17 18:53 | PCM.OP ---
Operative Report - Operative Report Date of Surgery/Procedure: 09/17/16 Time of Surgery/Procedure: 13:45 (time in room/anesthesia indcution time 12:46) Surgeon: Mckay Thread Singer: STACEY Andrews Anesthesia/Sedation: SANTI Centeno Pre-Operative Diagnosis: wound dehisicience s/p Revison R knee for sepsis and repair quad tendon Post-Operative Diagnosis: same. no evidence for deep sepsis at this point Indication for Surgery: as above delayed wound healing/wound dehiscience s/p revision TKR Operative Findings: as above. reatined foreign bodies (sutures) Procedure/Operation Description: Application negative pressure wound vac. irrigation debridemnt R knee wound dehisciensce. removal foreign bodies. ]. Operative procedure: After having obtained informed consent after having identified side and site and procedure/timeout after the satisfactory induction of general endotracheal anesthesia the patient identified as Owen Brooke right lower extremity is prepped and free draped in the usual fashion for lower extremity surgery. The area of wound dehiscence is identified and using #10 blade skin and subcutaneous tissue was excised. Irrigation and debridement as was accomplished at this point in time. Found to be retained foreign bodies in the knee specifically sutures which are deep. The sutures are removed. At this point in time the wound was thoroughly irrigated with several liters of antibiotic impregnated saline cultures are sent for stat Gram stain and cultures are sent as well. Stat Gram stain reveals no organisms nor at cells per high-powered field. At this point on the wound VAC is prepared. VAC dressing was prepared as well. 2 colloidal stripped or placed superiorly and inferiorly to wound dressing is measured and this applied to the colloidal strips. This having been accomplished a circular aperture is described in the wound VAC dressing this is removed from the dressing and the dressing was secured with the occlusive Steri-Drape. Suction device was placed on the circular aperture and was fastened. The tubing is set to the negative pressure canister. Bautista Quezada compression dressing and knee immobilizer was applied . End op note on pt Owen Brooke Estimated Blood Loss: 5cc Blood Replaced: 0 Sponge/Instrument Count: correct Drains: 0 Complications: none Specimen: none Discharge & Condition: stable
--- NOTE | 2016-09-17 19:50 | CP.PCM.PN ---
Subjective - Date & Time of Evaluation Date of Evaluation: 09/17/16 Time of Evaluation: 19:46 - Subjective Subjective: ID NOTE PATIENT EXAMINED /CHART REVIEWED PATIENT KNOWN TO ME FULL CONSULT NOTE DICTATED VANCO/AGUS X AT LEAST 2 MORE WEEKS C F/U PO RX Objective - Vital Signs/Intake and Output Vital Signs (last 24 hours): Temp Pulse Resp BP Pulse Ox 98 F 62 20 132/89 100 09/17/16 18:56 09/17/16 18:56 09/17/16 18:56 09/17/16 18:56 09/17/16 18:56 Intake and Output: 09/17/16 09/18/16 18:59 06:59 Intake Total 1400 Output Total 200 Balance 1200 - Medications Medications: Current Medications Enoxaparin Sodium (Lovenox) 40 mg SC DAILY [facility] PRN Reason: Protocol Ferrous Sulfate (Feosol) 325 mg PO BID [facility] Last Admin: 09/17/16 17:50 Dose: 325 mg Hydromorphone HCl (Dilaudid) 0.5 mg IVP Q10M PRN PRN Reason: Pain, moderate (4-7) Last Admin: 09/17/16 15:40 Dose: 0.5 mg Cefepime HCl 1 gm/ Sodium (Chloride) 100 mls @ 100 mls/hr IVPB Q12 [facility] Vancomycin HCl 1 gm/ Sodium (Chloride) 250 mls @ 166.667 mls/hr IVPB Q12 [facility] Montelukast Sodium (Singulair) 10 mg PO DAILY [facility] Morphine Sulfate (Morphine) 2 mg IVP Q4 PRN PRN Reason: Pain, severe (8-10) Nicotine (Nicoderm Cq) 1 patch TD DAILY [facility] Oxycodone/Acetaminophen (Percocet 5/325 Mg Tab) 1 tab PO Q4 PRN PRN Reason: Pain, moderate (4-7) Stop: 09/20/16 09:06 Valsartan (Diovan) 80 mg PO DAILY [facility] - Labs Labs: 09/17/16 08:34 09/17/16 08:34 PT 11.9 Seconds (9.8-13.1) 09/17/16 08:34 INR 1.1 (0.9-1.2) 09/17/16 08:34 APTT 39.6 Seconds (25.6-37.1) H 09/17/16 08:34
[2016-09-17] MEDS: Cefepime 1 GM in Sodium Chloride 0.9% 100 ML IVPB SCH (20:30)
--- NOTE | 2016-09-17 20:39 | CP.PCM.PN ---
Subjective - Date & Time of Evaluation Date of Evaluation: 09/17/16 Time of Evaluation: 20:37 - Subjective Subjective: ID NOTE PATIENT APPARENTLY DID NOT RECEIVE RX AFTER DISCHARGE WILL NEED TOTAL 6 WEEKS IV RX Objective - Vital Signs/Intake and Output Vital Signs (last 24 hours): Temp Pulse Resp BP Pulse Ox 98 F 62 20 132/89 100 09/17/16 18:56 09/17/16 18:56 09/17/16 18:56 09/17/16 18:56 09/17/16 18:56 Intake and Output: 09/17/16 09/18/16 18:59 06:59 Intake Total 1400 Output Total 200 Balance 1200 - Medications Medications: Current Medications Enoxaparin Sodium (Lovenox) 40 mg SC DAILY [facility] PRN Reason: Protocol Ferrous Sulfate (Feosol) 325 mg PO BID [facility] Last Admin: 09/17/16 17:50 Dose: 325 mg Hydromorphone HCl (Dilaudid) 0.5 mg IVP Q10M PRN PRN Reason: Pain, moderate (4-7) Last Admin: 09/17/16 15:40 Dose: 0.5 mg Cefepime HCl 1 gm/ Sodium (Chloride) 100 mls @ 100 mls/hr IVPB Q12 [facility] Vancomycin HCl 1 gm/ Sodium (Chloride) 250 mls @ 166.667 mls/hr IVPB Q12 [facility] Montelukast Sodium (Singulair) 10 mg PO DAILY [facility] Morphine Sulfate (Morphine) 2 mg IVP Q4 PRN PRN Reason: Pain, severe (8-10) Nicotine (Nicoderm Cq) 1 patch TD DAILY [facility] Oxycodone/Acetaminophen (Percocet 5/325 Mg Tab) 1 tab PO Q4 PRN PRN Reason: Pain, moderate (4-7) Stop: 09/20/16 09:06 Valsartan (Diovan) 80 mg PO DAILY [facility] - Labs Labs: 09/17/16 08:34 09/17/16 08:34 PT 11.9 Seconds (9.8-13.1) 09/17/16 08:34 INR 1.1 (0.9-1.2) 09/17/16 08:34 APTT 39.6 Seconds (25.6-37.1) H 09/17/16 08:34
[2016-09-17] MEDS ORDERED: Patient's Own Med (Cefepime 1gm In Ns 100ml [Maxipime 1gm] 1 GM) IVPB SCH (21:00)
[2016-09-17] MEDS ORDERED: Patient's Own Med (Vancomycin/0.9 % Sod Chloride [Vanco 1 Gram/250 Ml-0.9% Nacl] 1 GM) IV SCH (21:00)
--- NOTE | 2016-09-18 02:43 | CON ---
He is in bed 650, #2. HISTORY: The patient is a 56-year-old male known to me from his previous admission. He had a bilateral total knee replacement in 2011 and had surgery on the right knee in June of this year. While he was in rehab, the wound dehisced and started draining. Subsequently underwent a revision TKR and quad repair and I placed him on IV antibiotics for infection. At that time, he was on vancomycin and Maxipime. He had grown coagulase-negative staph,from some of the intraoperative cultures in his leg. The patient went home on IVs in mid July. He presently returned because of right knee pain and the knee is swollen, but there was no drainage. Dr. Bashir did a exploration of the right knee and there was no evidence of deep sepsis, suttures were removed.and he placed a wound VAC on the right knee along c irrigation and debridement of the right knee . PE:alert,cooperative and oriented to time and place. HEENT: Wnl NECK:Supple THORAX: expansion is equal LUNGS:Clear HEART:Rsr ABDOMEN:Soft,(+) bowel sounds EXT::Left knee surgical scarring Right knee surgical dressing and wound VAC . LABS:Noted IMPRESSION AND PLAN:Continue vancomycin and maxipeme x 2 to 4 weeks Andres Billings MD MTDD
[2016-09-18 07:10] LABS: HEMOGLOBIN 10.9 g/dL (12.0-18.0); MEAN CELL VOLUME 95.7 fl (80.0-94.0); MEAN CORPUSCULAR HEMOGLOBIN 31.3 pg (27.0-31.0); MEAN CORPUSCULAR HGB CONC 32.7 g/dL (33.0-37.0); RBC 3.49 Mil/uL (4.40-5.90); RED CELL DISTRIBUTION WIDTH 15.8 % (11.5-14.5); WHITE BLOOD COUNT 4.5 K/uL (4.8-10.8)
[2016-09-18 07:24] LABS: BLOOD UREA NITROGEN 13 mg/dl (9-20); CALCIUM 8.9 mg/dL (8.4-10.2); GFR AFRICAN-AMERICAN > 60; GFR NON-AFRICAN AMERICAN > 60
[2016-09-18 08:13] VITALS: BP 131/80; PULSE 66; RESP 20; TEMP 98.4; O2SAT 99
[2016-09-18] MEDS ORDERED: Enoxaparin 40 mg Syringe SC SCH (09:00)
[2016-09-18] MEDS: Cefepime 1 GM in Sodium Chloride 0.9% 100 ML IVPB SCH (09:00)
--- NOTE | 2016-09-18 11:07 | CP.PCM.DIS ---
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 (3) Infection of knee Status: Chronic (4) HTN (hypertension) Status: Chronic (5) DVT prophylaxis Status: Acute Hospital Course - Lab Results Lab Results: Micro Results 09/17/16 13:54 Synovial Fluid Gram Stain - Final Most Recent Lab Values WBC 4.5 K/uL (4.8-10.8) L 09/18/16 05:40 RBC 3.49 Mil/uL (4.40-5.90) L 09/18/16 05:40 Hgb 10.9 g/dL (12.0-18.0) L 09/18/16 05:40 Hct 33.4 % (35.0-51.0) L 09/18/16 05:40 MCV 95.7 fl (80.0-94.0) H 09/18/16 05:40 MCH 31.3 pg (27.0-31.0) H 09/18/16 05:40 MCHC 32.7 g/dL (33.0-37.0) L 09/18/16 05:40 RDW 15.8 % (11.5-14.5) H 09/18/16 05:40 Plt Count 200 K/uL (130-400) 09/18/16 05:40 MPV 8.0 fl (7.2-11.7) 09/17/16 08:34 Neut % (Auto) 58.9 % (50.0-75.0) 09/17/16 08:34 Lymph % (Auto) 23.9 % (20.0-40.0) 09/17/16 08:34 [place] % (Auto) 6.9 % (0.0-10.0) 09/17/16 08:34 Eos % (Auto) 9.6 % (0.0-4.0) H 09/17/16 08:34 Baso % (Auto) 0.7 % (0.0-2.0) 09/17/16 08:34 Neut # 3.0 K/uL (1.8-7.0) 09/17/16 08:34 Lymph # 1.2 K/uL (1.0-4.3) 09/17/16 08:34 [place] # 0.3 K/uL (0.0-0.8) 09/17/16 08:34 Eos # 0.5 K/uL (0.0-0.7) 09/17/16 08:34 Baso # 0.0 K/uL (0.0-0.2) 09/17/16 08:34 PT 11.9 Seconds (9.8-13.1) 09/17/16 08:34 INR 1.1 (0.9-1.2) 09/17/16 08:34 APTT 39.6 Seconds (25.6-37.1) H 09/17/16 08:34 Sodium 136 mmol/l (132-148) 09/18/16 05:40 Potassium 4.3 MMOL/L (3.6-5.0) 09/18/16 05:40 Chloride 107 mmol/L (98-107) 09/18/16 05:40 Carbon Dioxide 23 mmol/L (22-30) 09/18/16 05:40 Anion Gap 11 (10-20) 09/18/16 05:40 BUN 13 mg/dl (9-20) 09/18/16 05:40 Creatinine 0.8 mg/dL (0.8-1.5) 09/18/16 05:40 Est GFR ( Amer) > 60 09/18/16 05:40 Est GFR (Non-Af Amer) > 60 09/18/16 05:40 Random Glucose 83 mg/dL (75-110) 09/18/16 05:40 Calcium 8.9 mg/dL (8.4-10.2) 09/18/16 05:40 Total Bilirubin 0.4 mg/dl (0.2-1.3) 09/17/16 08:34 AST 20 U/L (17-59) 09/17/16 08:34 ALT 32 U/L (21-72) 09/17/16 08:34 Alkaline Phosphatase 72 U/L (38-126) 09/17/16 08:34 Total Protein 7.0 G/DL (6.3-8.2) 09/17/16 08:34 Albumin 4.1 g/dL (3.5-5.0) 09/17/16 08:34 Globulin 2.9 gm/dL (2.2-3.9) 09/17/16 08:34 Albumin/Globulin Ratio 1.4 (1.0-2.1) 09/17/16 08:34 Urine Color Yellow (YELLOW) 09/17/16 08:34 Urine Clarity Clear (Clear) 09/17/16 08:34 Urine pH 6.0 (5.0-8.0) 09/17/16 08:34 Ur Specific [place] 1.023 (1.003-1.030) 09/17/16 08:34 Urine Protein Negative mg/dL (NEGATIVE) 09/17/16 08:34 Urine Glucose (UA) Neg mg/dL (Normal) 09/17/16 08:34 Urine Ketones Negative mg/dL (NEGATIVE) 09/17/16 08:34 Urine Blood Negative (NEGATIVE) 09/17/16 08:34 Urine Nitrate Negative (NEGATIVE) 09/17/16 08:34 Urine Bilirubin Negative (NEGATIVE) 09/17/16 08:34 Urine Urobilinogen 0.2-1.0 mg/dL (0.2-1.0) 09/17/16 08:34 Ur Leukocyte Esterase Neg [place]/uL (Negative) 09/17/16 08:34 Urine RBC (Auto) 5 /hpf (0-3) H 09/17/16 08:34 Urine Microscopic WBC 1 /hpf (0-5) 09/17/16 08:34 Ur Squamous Epith Cells < 1 /hpf (0-5) 09/17/16 08:34 Urine Bacteria Rare (<OCC) 09/17/16 08:34 Fluid Type Synovial fluid 09/17/16 13:54 Synovial WBC 4.0 /mm3 (0.0-150.0) 09/17/16 13:54 Synovial RBC 297.0 /mm3 (0.0-0.0) H 09/17/16 13:54 Synovial Neutrophils 5.0 % (0-0) H 09/17/16 13:54 Synovial Lymphocytes 1.0 % (0-0) H 09/17/16 13:54 Synov Monos/Macrophage 0 % (0-0) 09/17/16 13:54 Synovial Fluid Comment Colorless 09/17/16 13:54 Vancomycin Trough 7.0 ug/mL (5.0-10.0) 09/18/16 09:10 Blood Type O POSITIVE 09/17/16 08:34 Antibody Screen Negative 09/17/16 08:34 BBK History Checked Patient has bt 09/17/16 08:34 - Hospital Course Hospital Course: 56 y/o gent with Hx of HTN, OA s/p Bilat TKR in 2011 , Had surgery of the right knee in June 2016 and while in Rehab, his wound dehisced and started draining. He then underwent Revision TKR and Quad Repair and started on IV antibiotics for infection. The patient has been on Home IV Antibiotic Infusion of Cefepime and Vancomycin for the past 1 month. Wound c/s: Staph coagulase negative. Patient presented to the ED because of right knee Pain . Ortho consulted- pt then underwent Wound Vac application in the OR and Removal of foreign body of his Right knee. ID consulted- Dr Manuelito sanderson to cont IV antibiotics to complete 6 wks treatment (1) Right knee pain Status: Acute Pain mgt IV Morphine Ortho consult: Dr Bashir PT/OT consult 2. 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 Had Revision TKR a month ago PT consult (4) Infection of knee, right No deep Sepsis Status: Chronic Hx of Wound c/s: Staph coag negative on Home IV Vanco and Cefepime for the past [address] Rao 6 wks IV abx total ( 2 more weeks) (5) HTN (hypertension) Status: Chronic cont Diovan (6) DVT prophylaxis Status: Acute Lovenox Discharge Exam - Head Exam Head Exam: NORMAL INSPECTION, NORMOCEPHALIC - Eye Exam Eye Exam: EOMI, Normal appearance, PERRL Pupil Exam: NORMAL ACCOMODATION - ENT Exam ENT Exam: Mucous Membranes Moist, Normal External Ear Exam - Neck Exam Neck exam: Full Rom - Respiratory Exam Respiratory Exam: NORMAL BREATHING PATTERN. absent: Respiratory Distress - Cardiovascular Exam Cardiovascular Exam: REGULAR RHYTHM, +S1, +S2 - GI/Abdominal Exam GI & Abdominal Exam: Normal Bowel Sounds, Soft. absent: Tenderness - Extremities Exam Extremities exam: normal capillary refill, pedal pulses present Additional comments: right knee with Immobilizer no calf tenderness - Back Exam Back exam: NORMAL INSPECTION. absent: CVA tenderness (L), CVA tenderness (R) - Neurological Exam Neurological exam: Alert, CN II-XII Intact, Oriented x3, Reflexes Normal - Psychiatric Exam Psychiatric exam: Normal Affect, Normal Mood - Skin Skin Exam: Dry, Normal Color, Warm Discharge Plan - Discharge Medications Prescriptions: Ammonium Lactate 12% [Lac-Hydrin 12% Lotion (225 g)] 225 applic EXT BID #1 bottle Aspirin [Ecotrin] 81 mg PO BID 60 Days Cefepime 1gm in NS 100ml [Maxipime 1gm] 1 gm IVPB Q12 14 Days Lactobacillus Acidophilus [Bacid Acidophilus] 1 cap PO BID #60 cap Nicotine 21 mg/24 hr [Nicoderm Cq] 1 patch TD DAILY #30 patch Vancomycin/0.9 % Sod Chloride [Vanco 1 Gram/250 ml-0.9% NaCl] 1 gm IV Q12 14 Days - Follow Up Plan Condition: GOOD Instructions: Knee Exercises (GEN) Additional Instructions: ff up with Dr Bashir in 1 wk Keep Wound Vac on until ff up with dr Bashir cont Home IV antibiotics Cefepime and Vanco x 2 more weeks Weekly BMP and Vanco trough Referrals: Jeremías Bashir III, MD [Staff Provider] -
== END 2016-09-18 14:31 | disposition home health service (06) ==
LOC: H.ER 07:19 → H.ERHOLD 07:52 → INTOOBSV 07:52 → H.MEDSURG1 09:55
PROVIDERS: ADMIT Internal Medicine; ATTEND Internal Medicine
DX: T81.32XA Disruption of internal operation (surgical) wound, not elsewhere classified, initial encounter (principal); T84.53XA Infection and inflammatory reaction due to internal right knee prosthesis, initial encounter; Y83.4 Other reconstructive surgery as the cause of abnormal reaction of the patient, or of later complication, without mention of misadventure at the time of the procedure; M17.0 Bilateral primary osteoarthritis of knee; I10 Essential (primary) hypertension; Z96.653 Presence of artificial knee joint, bilateral; F17.210 Nicotine dependence, cigarettes, uncomplicated; Y92.9 Unspecified place or not applicable
CPT/HCPCS: 27310; 36415; 71010; 73560; 73562; 80048; 80053; 80202; 81003; 85025; 85027; 85610; 85730; 86850; 86900; 87015; 87070; 87075; 87101; 87116; 87181; 87206; 88304; 89051; 93005; 96372; 96374; 96376; 97116; 97162; 97166; 97530; 99285; G0378; G8978; G8979; G8987; G8988; J0330; J0692; J1170; J1650; J1885; J2250; J2270; J2405; J2704; J3010; J7030; J7120; L1830

== ENCOUNTER 2017-05-13 06:04 | Day surgery (SDC) | payer MEDICAID ==
[2017-05-12 10:58] VITALS: BMI 34.2
--- NOTE | 2017-05-13 07:14 | CP.PCM.HP ---
History of Present Illness - History of Present Illness History of Present Illness: CC: FOR QUAD REPAIR HPI: 56 y/o gent with Hx of HTN, OA s/p Bilat TKR in 2011, had surgery of the right knee in June 2016 and while in Rehab, his wound dehisced and then underwent revision TKR and Quad Repair and started on IV antibiotics for infection. Patient completed alf course of Cefepime and Vancomycin. Over the past several months, patient complains of worsening, radiating, sharp severe knee pain, difficulty ambulating, presenting today for quadriceps tendon repair. Denies any fall or trauma to area. HD stable, NAD. For OR. Denies chest pain or dyspnea at rest or on exertion. Medically stable for surgery, low risk for moderate risk procedure. ROS: Per HPI, all other systems reviewed and neg Present on Admission - Present on Admission Any Indicators Present on Admission: No Past Patient History - Infectious Disease Hx of Infectious Diseases: None - Tetanus Immunizations Tetanus Immunization: Unknown - Past Medical History & Family History Past Medical History?: Yes - Past Social History Smoking Status: Light Smoker < 10 Cigarettes Daily - CARDIAC Hx Cardiac Disorders: Yes Hx Hypertension: Yes - PULMONARY Hx Respiratory Disorders: No - NEUROLOGICAL Hx Neurological Disorder: No - HEENT Hx HEENT Problems: No - RENAL Hx Chronic Kidney Disease: No - ENDOCRINE/METABOLIC Hx Endocrine Disorders: No - HEMATOLOGICAL/ONCOLOGICAL Hx Blood Disorders: No - INTEGUMENTARY Hx Dermatological Problems: No - MUSCULOSKELETAL/RHEUMATOLOGICAL Hx Musculoskeletal Disorders: Yes Hx Degenerative Joint Disease: Yes Hx Falls: No - GASTROINTESTINAL Hx Gastrointestinal Disorders: No - GENITOURINARY/GYNECOLOGICAL Hx Genitourinary Disorders: No - PSYCHIATRIC Hx Psychophysiologic Disorder: No Hx Substance Use: No - SURGICAL HISTORY Hx Surgeries: Yes Hx Orthopedic Surgery: Yes (bilateral total knee replacement) Other/Comment: right eye glaucoma surgery - ANESTHESIA Hx Anesthesia: Yes Hx Anesthesia Reactions: No Hx Malignant Hyperthermia: No Has any member of the family had a problem w/ anesthesia?: No Meds Allergies/Adverse Reactions: Allergies Allergy/AdvReac Type Severity Reaction Status Date / Time No Known Allergies Allergy Verified 09/17/16 07:33 Physical Exam - Constitutional Appears: Non-toxic, No Acute Distress - Head Exam Head Exam: ATRAUMATIC, NORMOCEPHALIC - Eye Exam Eye Exam: EOMI, Normal appearance, PERRL Pupil Exam: NORMAL ACCOMODATION - ENT Exam ENT Exam: Mucous Membranes Moist, Normal Oropharynx - Neck Exam Neck exam: Positive for: Full Rom, Normal Inspection - Respiratory Exam Respiratory Exam: Clear to Auscultation Bilateral, NORMAL BREATHING PATTERN - Cardiovascular Exam Cardiovascular Exam: RRR, +S1, +S2 - GI/Abdominal Exam GI & Abdominal Exam: Normal Bowel Sounds, Soft. absent: Mass, Organomegaly, Tenderness - Extremities Exam Extremities exam: Positive for: normal capillary refill, pedal pulses present Additional comments: s/p TKR REVISION - Back Exam Back exam: absent: CVA tenderness (L), CVA tenderness (R) - Neurological Exam Neurological exam: Alert, Oriented x3 - Psychiatric Exam Psychiatric exam: Normal Affect, Normal Mood - Skin Skin Exam: Dry, Warm Results - Vital Signs Recent Vital Signs: Last Vital Signs Temp 98.1 F 05/13/17 06:36 Pulse 70 05/13/17 06:40 Resp 20 05/13/17 06:36 BP 131/80 05/13/17 06:36 Pulse Ox 98 05/13/17 06:36 Assessment & Plan - Assessment and Plan (Free Text) Plan: 56 y/o gent with Hx of HTN, OA s/p Bilat TKR in 2011, had surgery of the right knee in June 2016 and while in Rehab, his wound dehisced and then underwent revision TKR and Quad Repair and started on IV antibiotics for infection. 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 Over the past several months, patient complains of worsening, radiating, sharp severe knee pain, difficulty ambulating, presenting today for quadriceps tendon repair. Denies any fall or trauma to area. HD stable, NAD. For OR. Denies chest pain or dyspnea at rest or on exertion. Medically stable for surgery, low risk for moderate risk procedure. Quadriceps repair Ortho - Dr. Bashir PT/OT Pain control monitor VTE per ortho Incentive Spirometer [id number] Hold ASA, resume per Ortho COPD? cont Singulair and Albuterol PRN HTN continue Diovan VTE per Ortho
[2017-05-13] MEDS ORDERED: Midazolam 2 MG/2 ML VIAL ONE (07:38)
[2017-05-13] MEDS ORDERED: Propofol 10 mg/ml Inj (20 ML) ONE (07:38)
[2017-05-13 07:39] LABS: HEMOGLOBIN 13.3 g/dL (12.0-18.0); MEAN CELL VOLUME 96.9 fl (80.0-94.0); MEAN CORPUSCULAR HEMOGLOBIN 32.8 pg (27.0-31.0); MEAN CORPUSCULAR HGB CONC 33.9 g/dL (33.0-37.0); RBC 4.07 Mil/uL (4.40-5.90); RED CELL DISTRIBUTION WIDTH 14.1 % (11.5-14.5); WHITE BLOOD COUNT 6.7 K/uL (4.8-10.8)
[2017-05-13] MEDS ORDERED: Succinylcholine 200 mg/10 ml Inj IV ONE (07:39)
[2017-05-13] MEDS ORDERED: Lidocaine 1% 5ml Abboject IV ONE (07:40)
[2017-05-13] MEDS ORDERED: Lidocaine 4% (Laryng-O-Jet) Kit MM ONE (07:40)
[2017-05-13] MEDS ORDERED: Lidocaine 1% Inj (20ml) ONE (07:45)
[2017-05-13] MEDS ORDERED: Bacitracin Ointment 30 GM TUBE ONE (07:45)
[2017-05-13] MEDS ORDERED: Bupivacaine 0.5% Inj(30mL) ONE (07:45)
[2017-05-13] MEDS ORDERED: Absorbable Gelatin Sponge Size 100 ONE (07:45)
[2017-05-13] MEDS ORDERED: Thrombin Topical 5,000 Int Units Spray Kit ONE (07:46)
--- NOTE | 2017-05-13 07:53 | CP.PCM.CON ---
History of Present Illness - History of Present Illness History of Present Illness: Patient is a 57 y/o male, well known to Dr. Bashir's practice complaining of right knee pain which has worsened over the past few months. He has a history of bilateral TKA performed in 2011, a right knee explant and antibiotic spacer placement performed in June 2016 for septic knee with right revision TKA performed in July 2016, and a right knee I&D and application of wound VAC for surgical wound dehiscence performed in August 2016. The patient states that he had a vague injury to his right knee in December 2016 resulting in anterior supra-patellar knee pain. This injury was never reported to Dr. Bashir until his recent follow up. The pain is sharp, and stabbing in quality and intermittent in frequency. It is worsened with ambulation and stairclimbing and is relieved with rest. The pain has progressively worsened since the time of his injury affecting his activities of daily living. He has failed conservative management. Review of Systems - Review of Systems All systems: reviewed and no additional remarkable complaints except Review of Systems: as per HPI Past Patient History - Infectious Disease Hx of Infectious Diseases: None - Tetanus Immunizations Tetanus Immunization: Unknown - Past Medical History & Family History Past Medical History?: Yes Past Family History: Reviewed and not pertinent - Past Social History Smoking Status: Light Smoker < 10 Cigarettes Daily Alcohol: None Drugs: Denies - CARDIAC Hx Cardiac Disorders: Yes Hx Hypertension: Yes - PULMONARY Hx Asthma: Yes - NEUROLOGICAL Hx Neurological Disorder: No - HEENT Hx HEENT Problems: No - RENAL Hx Chronic Kidney Disease: No - ENDOCRINE/METABOLIC Hx Endocrine Disorders: No - HEMATOLOGICAL/ONCOLOGICAL Hx Blood Disorders: No - INTEGUMENTARY Hx Dermatological Problems: No - MUSCULOSKELETAL/RHEUMATOLOGICAL Hx Musculoskeletal Disorders: Yes Hx Degenerative Joint Disease: Yes Hx Falls: No - GASTROINTESTINAL Hx Gastrointestinal Disorders: No - GENITOURINARY/GYNECOLOGICAL Hx Genitourinary Disorders: No - PSYCHIATRIC Hx Psychophysiologic Disorder: No Hx Substance Use: No - SURGICAL HISTORY Hx Surgeries: Yes (as per HPI) Hx Orthopedic Surgery: Yes (bilateral total knee replacement) Other/Comment: right eye glaucoma surgery - ANESTHESIA Hx Anesthesia: Yes Hx Anesthesia Reactions: No Hx Malignant Hyperthermia: No Has any member of the family had a problem w/ anesthesia?: No Meds Allergies/Adverse Reactions: Allergies Allergy/AdvReac Type Severity Reaction Status Date / Time No Known Allergies Allergy Verified 09/17/16 07:33 - Medications Medications: Ventolin, HCTZ, valsartan, omeprazole, chantix Physical Exam - Constitutional Appears: No Acute Distress - Eye Exam Eye Exam: Normal appearance - ENT Exam ENT Exam: Mucous Membranes Moist - Neck Exam Neck exam: Positive for: Normal Inspection - Respiratory Exam Respiratory Exam: Clear to Auscultation Bilateral, NORMAL BREATHING PATTERN - Cardiovascular Exam Cardiovascular Exam: REGULAR RHYTHM - Expanded Lower Extremities Exam Right Hip exam: normal inspection Knee exam: deformity (suprapatellar indentation), full knee extension (4-/5 quad motor, able to extend knee against gravity), full ROM (0-120), swelling, tenderness (suprapatellar at quadriceps region) Neuro vacular tendon exam: absent: abnormal cap refill, peroneal nerve deficit, sensory deficit - Neurological Exam Neurological exam: Alert, Oriented x3 - Psychiatric Exam Psychiatric exam: Normal Affect, Normal Mood - Skin Skin Exam: Normal Color, Warm Results - Vital Signs Recent Vital Signs: Last Vital Signs Temp 98.1 F 05/13/17 06:36 Pulse 70 05/13/17 06:40 Resp 20 05/13/17 06:36 BP 131/80 05/13/17 06:36 Pulse Ox 98 05/13/17 06:36 - Labs Result Diagrams: 05/13/17 07:29 Labs: Laboratory Results - last 24 hr 05/13/17 05/13/17 07:29 07:29 WBC 6.7 RBC 4.07 L Hgb 13.3 D Hct 39.4 MCV 96.9 H MCH 32.8 H MCHC 33.9 RDW 14.1 Plt Count 318 D Crossmatch See Detail BBK History Checked Patient has bt Assessment & Plan (1) Quadriceps tendon rupture Assessment and Plan: Patient is a 57 y/o male with a quadriceps tendon tear with h/o R TKA -OR today for quad tendon repair -patient was cleared for surgery by medicine -The risks/benefits/disadv/adv were discussed with the patient in detail. The risks include blood loss, neurovascular injury, limb loss of function, loss of limb. Patient understands and wishes to proceed with the procedure. -patient's case and plan was discussed in agreement with Dr. Bashir Status: Acute
[2017-05-13] MEDS ORDERED: Lactated Ringer's 1,000 ML IV ONE (07:55)
[2017-05-13] MEDS ORDERED: Bupivacaine HCl 0.25% PF (10 ml) Inj ONE (08:02)
[2017-05-13] MEDS ORDERED: Phenylephrine 10 mg/ml Inj ONE (08:27)
[2017-05-13] MEDS ORDERED: Rocuronium 10 mg/ml (5 ml) ONE (09:15)
[2017-05-13] MEDS ORDERED: Neostigmine 1:1000 (1 mg/ml) Inj ONE (09:51)
[2017-05-13] MEDS ORDERED: Lactated Ringer's 500 ML IV ONE (10:10)
[2017-05-13 10:17] LABS: FLUID TYPE SYNOVIAL FLUID
[2017-05-13] MEDS ORDERED: Bacitracin OINT 15GM TOP ONE (10:30)
[2017-05-13] MEDS ORDERED: HYDROmorphone 0.5 mg/0.5 ml ISec IVP PRN (11:08)
[2017-05-13] MEDS ORDERED: Oxycodone/Acetaminophen 5/325 mg Tab PO PRN (11:08)
--- NOTE | 2017-05-13 11:14 | PCM.ANESB3 ---
Femoral Nerve Block - Femoral Nerve Block Date of Procedure: 05/13/17 Anesthesiologist: Dr. Centeno Pre-Procedure Diagnosis: Ruptured right quadricep tendon Post-Procedure Diagnosis: Ruptured right quadricep tendon Procedure Performed: Femoral Nerve Block Right - Procedure Femoral Nerve Block: The procedure was explained to the patient that it is for the post-operative pain management. Consent was obtained after a thorough discussion with the patient regarding the benefits and possible complications of local anesthetic block of the femoral nerve at the inguinal crease area. The patient was brought to the operating room and standard monitors were applied. Time-out was held with the circulating nurse to confirm the correct surgery and the appropriate block. After induction while under general anesthesia, patient was placed in supine position with fully extended lower extremities and the right groin exposed. The femoral artery was then carefully palpated. The ultrasound transducer was then applied to this area in the transverse plane and the femoral nerve was visualized lateral to the femoral artery and underneath the fascia iliaca. After thorough identification, the inguinal crease area was prepped with Chloraprep solution. At this point, a #20 gauge Stimuplex 4-inch needle was inserted immediately lateral to the femoral artery pulse at the inguinal crease and advanced perpendicularly. The needle was inserted to the ultrasound transducer in-plane towards the femoral nerve in a [id number] direction. Needle advancement was performed carefully under direct ultrasound visualization. Nerve stimulator was used and twitch of the quadriceps muscle was obtained at current of 0.3MA. After negative aspiration, 5cc of 0.25% Bupivacaine was injected and this was followed with 35cc of 0.25% Bupivacaine. Under ultrasound guidance the local anesthetics were observed spreading below fascia iliaca and around the femoral nerve. The needle was removed intact and sterile dressing was applied. The patient had stable vital signs, and was in no apparent distress. The patient tolerated the femoral nerve block well with stable vital signs and was prepared for subsequent surgery.
[2017-05-13 11:23] LABS: FLUID TYPE SYNOVIAL FLUID
--- NOTE | 2017-05-13 11:24 | PCM.SURG1 ---
Surgeon's Initial Post Op Note - Surgeon's Notes Surgeon: Mckay Trial Justice: STACEY Andrews/ 2nd assist Nasim Vu PA-C Type of Anesthesia: General Endo Anesthesia Administered By: Dr Centeno Pre-Operative Diagnosis: Rupture/attenuation quadriceps tendon R(s/p R TKR) Operative Findings: incomplete rupture/quad tendon attenuation. synovitis R Knee s/p TKR Post-Operative Diagnosis: as above Operation Performed: Primary repair quad tendon. arthrotomy/partia;l synovectomy. arthrotmy irrigation debride,nt/cu;ltutre and Bx. excision skin/ subcutaneous tissue and muscle. applx Bautista Quezada compression dressing and knee immobilizer Specimen/Specimens Removed: synovium/tendon Estimated Blood Loss: EBL {In ML}: 20 Blood Products Given: N/A Drains Used: No Drains Post-Op Condition: Good Date of Surgery/Procedure: 05/13/17 Time of Surgery/Procedure: 09:15 (time in room/anesthesia indcution time- 755)
[2017-05-13 11:26] VITALS: RESP 18
[2017-05-13 12:06] LABS: SF GROSS APPEARANCE CLEAR (CLEAR); SYNOVIAL FLUID COMMENT CLEAR
[2017-05-13 12:07] LABS: SF GROSS APPEARANCE TURBID (CLEAR); SYNOVIAL FLUID COMMENT BLOODY; SYNOVIAL FLUID MONO/MACROPHAGE 2 % (0-0)
[2017-05-13 12:07] LABS: SYNOVIAL FLUID MONO/MACROPHAGE 0 % (0-0)
--- NOTE | 2017-05-13 12:24 | RAD ---
PROCEDURE: Right Knee Radiographs. HISTORY: s/p right quadricep tendon repair. COMPARISON: 09/17/2016 FINDINGS: BONES: Satisfactory position alignment of orthopedic hardware status post right TKA JOINTS: Normal. No osteoarthritis. JOINT EFFUSION: Expected postoperative changes including fluid in the joint and suprapatellar bursa. OTHER FINDINGS: None. IMPRESSION: Satisfactory postoperative status.
--- NOTE | 2017-05-13 15:34 | RAD ---
PROCEDURE: Intraoperative fluoroscopy HISTORY: RIGHT QUAD REPAIR (KNEE) COMPARISON: None TECHNIQUE: Total fluoroscopic time (continuous mode) utilized during the procedure: 12.8 seconds FINDINGS: Submitted images from the current procedure: 5.0 IMPRESSION: Fluoroscopy for quadriceps repair.
[2017-05-13 17:38] VITALS: TEMP 98; O2SAT 100
[2017-05-13 18:08] VITALS: BP 135/90; PULSE 78
--- NOTE | 2017-05-17 16:11 | OP ---
PROCEDURE DATE: 05/13/2017 LOCATION: [facility]. PREOPERATIVE DIAGNOSIS: Rupture, attenuation of right quadriceps tendon, status post successful right total knee. OPERATIVE FINDINGS: 1. Incomplete rupture of quad tendon with attenuation of right knee, status post successful right total knee. 2. Synovitis of the right knee status post right total knee replacement. POSTOPERATIVE DIAGNOSIS: Rupture, attenuation right quadriceps tendon status post successful right total knee. OPERATION PERFORMED: 1. Primary repair and imbrication of the quadriceps tendon. 2. Arthrotomy, partial synovectomy. 3. Arthrotomy, irrigation, debridement, culture, and biopsy. 4. Excision of skin, subcutaneous tissue, and muscle. 5. Application of Bautista Quezada compression dressing and knee immobilizer. SURGEON: Jeremías Bashir MD AGENCY RECRUITER: Nasim Vu PA-C SECOND BULLDOZER OPERATOR: Karissa Lira, certified registered nursing geriatric nurse assistant. ANESTHESIA: General endotracheal anesthesia. ANESTHESIOLOGIST: Domingo Centeno MD COMPLICATIONS: None. DRAINS: None. ESTIMATED BLOOD LOSS: Approximately 20 mL. BLOOD PRODUCTS GIVEN: None. POSTOPERATIVE CONDITION: Stable. TIME OF SURGERY: 9:15 incision time and anesthesia induction time 7:55. OPERATIVE INDICATIONS: Michael Brooke is a patient well-known to my practice, who had a revision for sepsis and an irrigation and debridement subsequently. The patient was last seen doing quite well in November of 2016, the patient was last seen in my office. The patient presents approximately 2 weeks ago with MRI positive for questionable rupture of right quadriceps tendon. On physical examination at that time, please refer to my office notes. The patient presented to the office with essentially a normal gait, and ambulating without ambulation aids. The patient when seated on the examination table, was able to fully extend the knee. The patient did have a small palpable attenuation/defect one or two fingerbreadths above the quadriceps tendon insertion into the patella. Again, it should be noted in no uncertain terms that the patient was able to extend the quadriceps tendon, in fact in the holding area prior to surgery, the patient walked to the bathroom with no assistive ambulation aids whatsoever. Pros and cons, risks and benefits of exploration are discussed. The possibility of stiffness, infection, mechanical failure, thromboembolic disease, nerve injury, persistent stiffness, possibility of secondary or tertiary surgery are discussed. The patient understands the concept, but he feels that the quad tendon is injured, he wishes it to be repaired. After a thorough discussion of the pros, cons, risks, and benefits in the above fashion, informed consent was obtained. Please refer to the hospital chart number 1 and number 2. DESCRIPTION OF THE PROCEDURE: After the satisfactory induction of general tracheal anesthesia by Dr. Centeno, after having identified side, site, and procedure and a critical pause/time-out. The patient identified as Michael Brooke in the supine position with all bony prominences well padded, the right lower extremity was prepped and free draped in the usual fashion for extremity surgery. The tourniquet had been applied, but was not yet inflated. After having performed the time-out, after exsanguinating the limb using a 6-inch Esmarch bandage, tourniquet which had been applied was inflated to 350 mmHg. The initial incision was extended two fingerbreadths proximally and extended distally to the inferior aspect of the patella and an ellipse of skin and subcutaneous tissue and a bit of muscle were excised. The skin incision was carried down through the quadriceps tendon and to the level of the prepatellar bursa. Flaps were raised medially and laterally to identify the quadriceps tendon. Again, skin, subcutaneous tissue, and muscle, an ellipse or island had been excised to be closed primarily later. Evaluation of the quadriceps tendon, which was clearly evaluated under direct vision reveals no yvonne rupture, but there was an area of attenuation in the mid aspect. Noting this, the feeling was a small excision and primary closure with imbrication would be indicated. Again, it should be noted that the patient did have successful active extension preoperatively. The area of maximal attenuation was identified and using #10 blade, an arthrotomy was accomplished, and the excision of that area of the quadriceps was accomplished. At this point in time, there was an egress of fluid, it was sent for aerobic, anaerobic, AFB and fungal cultures. The synovectomy and debridement through that window was accomplished using the Aquamantys and using the electrocautery. A biopsy was sent for culture biopsy and microbiology. Thorough arthrotomy irrigation having been accomplished, primary repair of the quadriceps tendon was accomplished with interrupted #2 FiberWire. Imbrication was accomplished by grasping each end with Kochers pressing the lateral and medially inferior to the medial limb, the medial limb was placed superiorly and closure with imbrication was thus accomplished using interrupted #2 FiberWire. This having been accomplished, the defect was found to be closed, and there was found to be excellent fixation of the tendon to the patella. At this point in time, using a #5 FiberWire, a [place] type suture was started three fingerbreadths proximal to that area of defect and brought distal to the area superior to the patella. With the knee at approximately 5 degrees short of terminal extension, the repair was completed by tying that modified Ambar type suture. [place] suture having been accomplished, the wound was thoroughly irrigated. Gram stain shows less than 3 white cells per high-power field. The wound was thoroughly irrigated, closures in layers with interrupted Vicryl followed by garcia to skin. The tourniquet was deflated. Hemostasis was controlled. Bautista Quezada compression dressing and knee immobilizer were applied. The patient was stable in recovery. The patient is evaluated by a PA, Nasim Vu, and decision was made for discharge on antibiotics. We will see the patient back in approximately 9 days. Jeremías Bashir MD
== END 2017-05-13 15:30 | disposition home or self-care (01) ==
LOC: H.OPSURG 06:04
PROVIDERS: ATTEND Orthopaedic Surgery
DX: S76.119A Strain of unspecified quadriceps muscle, fascia and tendon, initial encounter (principal); X58.XXXA Exposure to other specified factors, initial encounter; J45.909 Unspecified asthma, uncomplicated; I10 Essential (primary) hypertension; E66.9 Obesity, unspecified; Z87.891 Personal history of nicotine dependence; M00.9 Pyogenic arthritis, unspecified; Z96.653 Presence of artificial knee joint, bilateral; Z91.19 Patient's noncompliance with other medical treatment and regimen
CPT/HCPCS: 27385; 36415; 73560; 85027; 86850; 86900; 86920; 87015; 87070; 87075; 87101; 87116; 87206; 88300; 88304; 88305; 89051; 97116; 97161; G8978; G8979; G8980; J0330; J0690; J2250; J2370; J2704; J2710; J2765; J3010; J7120